=== PATIENT | female | born 1970 | race African-American/Black ===

== ENCOUNTER 2017-01-11 21:23 | Observation (INO) | payer MEDICARE, OTHER ==
[~2017-01-11] VITALS: Ht 165.1 cm; Wt 123.1 kg
[~2017-01-11 21:23] MED LIST: AMBI10TA PO; BENL120I INJ; CYMB60CA PO; DIAZ5 PO; FENT50DI T-DERMAL; GABA800T PO; METH2.5T PO; OMEP20TA PO; OXYC30TA PO; PRED5TAB PO; PROM25TA5 PO; VENTAER INH; ZANA4CAP PO; ZOFR4TAB PO; [UNRECOGNIZED DRUG - CODE] PO
[2017-01-11 21:43] VITALS: BP 129/77; PULSE 76; RESP 20; TEMP 98.9; O2SAT 98
[2017-01-11] MEDS ORDERED: CARD360C PO (22:27)
[2017-01-11] MEDS ORDERED: FOLI5CAP PO (22:27)
--- NOTE | 2017-01-11 22:41 | PD ---
HPI Chief Complaint: Chest Pain Time Seen by Provider: 22:06 Travel History International Travel<30 days: No Contact w/Intl Traveler<30days: No Traveled to known affect area: No History of Present Illness HPI 46-year-old female with history of lupus, asthma, hypertension, fibromyalgia, here for evaluation of chest pain. The patient reports having substernal chest pain that radiates to her upper back. Pain described as a tightness/shortness, constant, 9 out of 10, worse with movement and palpation and deep inspiration. She denies history of cardiac disease. There is family history of heart disease. No history of DVT or PE. She has been having a cough which has been blood tinged. She reports low-grade fevers of 99/100F. PFSH Past Medical History Hx Anticoagulant Therapy: No Arthritis: Yes Asthma: Yes Blood Disorders: No Heart Rhythm Problems: No Cancer: No Cardiovascular Problems: Yes (IRREGULAR HEART BEAT - FEELS HEART IS RACING - UNKNOWN SPECIFICS) High Cholesterol: No Chemotherapy: No Chest Pain: No Congestive Heart Failure: No COPD: No Cerebrovascular Accident: No Diabetes: No Diminished Hearing: No Endocrine: No Gastrointestinal Disorders: Yes (ACID REFLUX; GALL BLADDER DISEASE ) GERD: Yes Glaucoma: No Genitourinary: Yes (HX KIDNEY INFECTIONS) Headaches: Yes Hepatitis: No Hiatal Hernia: No Hypertension: Yes Immune Disorder: Yes (LUPUS; FIBROMYALGHIA) Medical other: Yes Musculoskeletal: Yes (ARTHRITIS; JOINT PAIN; FIBROMYALGHIA) Neurologic: Yes (DEGENERATIVE DISK DISEASE; MIGRAINE HEADACHES) Psychiatric: Yes (ANXIETY & DEPRESSION) Reproductive: No Respiratory: Yes (ASTHMA) Immunizations Current: Yes Migraines: No Myocardial Infarction: No Radiation Therapy: No Seizures: No Sickle Cell Disease: No Sleep Apnea: No Thyroid Disease: No Ulcer: No Tetanus Vaccination: < 5 Years Influenza Vaccination: Yes ?: Not Past Surgical History Abdominal Surgery: No AICD: No Appendectomy: No Arteriovenous Shunt: No Body Medical Devices: TOTAL RIGHT KNEE; L5 & S1 HARDWARE; CERVICAL HARDWARE - SMART PORT Cardiac Surgery: No Cholecystectomy: Yes Ear Surgery: No Endocrine Surgery: No Eye Surgery: No Genitourinary Surgery: Yes (bladder tuck 2002) Gynecologic Surgery: Yes (partial hysterectomy 2002; ROMAN TUBAL LIGATION ) Hysterectomy: Yes Insulin Pump: No Joint Replacement: Yes (TOTAL RIGHT KNEE; l5 & S1 HARDWARE; CERVICAL HARDWARE) Neurologic Surgery: Yes (LUMBAR SPINAL FUSION 1998, CERVICAL FUSION C3-C4 2013) Oral Surgery: No Pacemaker: No Thoracic Surgery: No Other Surgery: Yes (IMPLANTATION OF SMART PORT) Social History Alcohol Use: No Tobacco Use: No Substance Use: No Allergies-Medications (Allergen,Severity, Reaction): Coded Allergies: Pyridium (Verified Allergy, Severe, CAN'T BREATHE, 01/11/17) HIVES, ITCHING, SWEATS Uncoded Allergies: BRAZIL NUTS (Allergy, Severe, THROAT CLOSES; THROAT SWELLING, 12/07/15) IV CONTRAST DYE (Allergy, Unknown, Hives, 12/07/15) PT STATES SHE CAN PRE MEDITATED WITH BENADRYL WITH NO REACTION Reported Meds & Prescriptions Reported Meds & Active Scripts Active Reported Folic Acid 5 Mg Cap 5 Mg PO DAILY Cardizem CD 24 HR (Diltiazem CD 24 HR) 360 Mg Caper 360 Mg PO DAILY Prednisone 5 Mg Tab 10 Mg PO DAILY Fentanyl Patch 72 HR (Fentanyl) 50 Mcg/Hr Patch 50 Mcg T-DERMAL Q72H Remove old patch when new one placed. Benlysta Inj (Belimumab) 120 Mg Inj 120 Mg INJ MONTHLY Methotrexate 2.5 Mg Tab 20 Mg PO Q7D Ventolin Hfa 18 GM Inh (Albuterol Sulfate) 90 Mcg/Act Aer 2 Puff INH Q4-6H PRN Cymbalta DR (Duloxetine HCl) 60 Mg Capdr 60 Mg PO DAILY Omeprazole 20 Mg Tab 20 Mg PO DAILY Zofran (Ondansetron HCl) 4 Mg Tab 4 Mg PO Q6HR PRN Gabapentin 800 Mg Tab 800 Mg PO TID Oxycodone (Oxycodone HCl) 30 Mg Tab 30 Mg PO Q6HR PRN Zanaflex (Tizanidine HCl) 4 Mg Cap 2 Mg PO TID Ambien (Zolpidem Tartrate) 10 Mg Tab 10 Mg PO HS PRN Review of Systems Except as stated in HPI: all other systems reviewed are Neg Physical Exam Narrative GENERAL: Well-developed, well-nourished, overweight, comfortable, no acute distress. SKIN: Warm and dry. No rash. HEAD: Atraumatic. Normocephalic. EYES: Pupils equal and round. No scleral icterus. No injection or drainage. ENT: Mucous membranes pink and moist. NECK: Trachea midline. No JVD. CARDIOVASCULAR: Regular rate and rhythm. Distal pulses brisk and equal bilaterally. RESPIRATORY: No accessory muscle use. Clear to auscultation. Breath sounds equal bilaterally. GASTROINTESTINAL: Abdomen soft, non-tender, nondistended. MUSCULOSKELETAL: No obvious deformities. No clubbing. No cyanosis. No edema. NEUROLOGICAL: Awake and alert. No obvious cranial nerve deficits. Motor grossly within normal limits. Normal speech. PSYCHIATRIC: Appropriate mood and affect; insight and judgment normal. Data Data Last Documented VS Vital Signs Date Time Temp Pulse Resp B/P Pulse Ox O2 Delivery O2 Flow Rate FiO2 01/11/17 21:43 98.9 76 20 129/77 98 Orders Electrocardiogram (01/11/17 21:55) Complete Blood Count With Diff (01/11/17 22:37) Comprehensive Metabolic Panel (01/11/17 22:37) B-Type Natriuretic Peptide (01/11/17 22:37) Act Partial Throm Time (Ptt) (01/11/17 22:37) Prothrombin Time / Inr (Pt) (01/11/17 22:37) Ckmb (Isoenzyme) Profile (01/11/17 22:37) Troponin I (01/11/17 22:37) Influenzae A/B Antigen (01/11/17 22:37) Iv Access Insert/Monitor (01/11/17 22:37) Ecg Monitoring (01/11/17 22:37) Oximetry (01/11/17 22:37) Oxygen Administration (01/11/17 22:37) Chest, Single Ap (01/11/17 22:37) Sodium Chloride 0.9% Flush (Ns Flush) (01/11/17 22:45) Beta Hcg (Quant/Titer) (01/11/17 22:37) Aspirin Chew (Aspirin Chew) (01/11/17 22:45) Albuterol-Ipratropium Neb (Duoneb Neb) (01/11/17 22:45) D-Dimer (01/11/17 22:37) Nitroglycerin Sl (Nitrostat Sl) (01/11/17 23:45) Morphine Inj (Morphine Inj) (01/12/17 00:00) Ondansetron Inj (Zofran Inj) (01/12/17 00:00) Ventilation & Perfusion Scan (01/11/17 ) Labs Laboratory Tests Test 01/11/17 23:00 White Blood Count 9.8 TH/MM3 Red Blood Count 4.35 MIL/MM3 Hemoglobin 13.0 GM/DL Hematocrit 38.6 % Mean Corpuscular Volume 88.7 FL Mean Corpuscular Hemoglobin 29.9 PG Mean Corpuscular Hemoglobin 33.7 % Concent Red Cell Distribution Width 13.4 % Platelet Count 243 TH/MM3 Mean Platelet Volume 7.6 FL Neutrophils (%) (Auto) 58.7 % Lymphocytes (%) (Auto) 27.2 % Monocytes (%) (Auto) 8.2 % Eosinophils (%) (Auto) 2.2 % Basophils (%) (Auto) 3.7 % Neutrophils # (Auto) 5.7 TH/MM3 Lymphocytes # (Auto) 2.7 TH/MM3 Monocytes # (Auto) 0.8 TH/MM3 Eosinophils # (Auto) 0.2 TH/MM3 Basophils # (Auto) 0.4 TH/MM3 CBC Comment DIFF FINAL Differential Comment Prothrombin Time 10.5 SEC Prothromb Time International 1.0 RATIO Ratio Activated Partial 37.1 SEC Thromboplast Time D-Dimer Quantitative (PE/DVT) 0.88 MG/L FEU Sodium Level 141 MEQ/L Potassium Level 3.6 MEQ/L Chloride Level 105 MEQ/L Carbon Dioxide Level 27.9 MEQ/L Anion Gap 8 MEQ/L Blood Urea Nitrogen 11 MG/DL Creatinine 0.64 MG/DL Estimat Glomerular Filtration 120 ML/MIN Rate Random Glucose 108 MG/DL Calcium Level 8.1 MG/DL Total Bilirubin 0.3 MG/DL Aspartate Amino Transf 8 U/L (AST/SGOT) Alanine Aminotransferase 12 U/L (ALT/SGPT) Alkaline Phosphatase 86 U/L Total Creatine Kinase 64 U/L Troponin I LESS THAN 0.02 NG/ML B-Type Natriuretic Peptide 11 PG/ML Total Protein 7.2 GM/DL Albumin 3.3 GM/DL Human Chorionic Gonadotropin, LESS THAN 1 Quant MIU/ML MDM Medical Decision Making Medical Screen Exam Complete: Yes Emergency Medical Condition: Yes Medical Record Reviewed: Yes Interpretation(s) EKG: Sinus, rate 76, normal axis, normal intervals, no acute ischemic abnormality. Differential Diagnosis ACS, pneumothorax, pericarditis, PE, pneumonia, bronchitis, musculoskeletal pain , dissection Narrative Course Vital signs show heart rate 76, blood pressure 129/77, pulse ox 98% on room air , oral temp of 98.9F. CBC is unremarkable. CMP is unremarkable. Cardiac enzymes are negative. HCG is negative. BNP is 11. Influenza is negative. D-dimer 0.88. Chest x-ray shows no acute cardio pulmonary disease. Patient states that her pain is 9.5 out of 10. The patient does not appear to be in any acute distress and is resting comfortably on her cell phone. I wrote for nitroglycerin, however when the patient saw that she was then again nitroglycerin for her pain, she refused it stating that it was going to give her a headache. She states that her pain medications at home are not working for her pain and she is on oxycodone as well as a fentanyl patch. She is requesting something stronger for pain. I will give her a dose of morphine. Given her slight elevated d-dimer, VQ scan will be ordered as she has an IV contrast dye allergy. At approximately midnight at the end of my shift the patient was signed out to Dr. Lamb who will follow up with VQ scan and disposition the patient. Tom Monreal MD Jan 11, 2017 22:41
[2017-01-11] MEDS ORDERED: ASPIRIN 81 MG CHEW TAB PO ONE (22:45)
[2017-01-11] MEDS ORDERED: SODIUM CHLORIDE 0.9% FLUSH 5 ML FLUSH IVF PRN (22:45)
[2017-01-11] MEDS: RESP: ALBUTEROL 2.5 MG/IPRATROPIUM 0.5 MG NEB (SCH) INH ×3 (22:48→23:13)
--- NOTE | 2017-01-11 22:57 | RADHPO ---
EXAM DATE/TIME: 01/11/2017 22:43 [facility] COMPARISON: No previous studies available for comparison. INDICATIONS : Cough, complains of chest and rib pain. MEDICAL HISTORY : None. SURGICAL HISTORY : None. ENCOUNTER: Initial ACUITY: 2 days PAIN SCORE: 10/10 LOCATION: Bilateral chest FINDINGS: The cardiac silhouette is normal in transverse diameter. The lungs are free of acute parenchymal opac ity. No effusions are identified. [id number] is in place via right subclavian approach with its ti p in the superior vena cava. CONCLUSION: 1. No acute cardiopulmonary disease. Darell Martin MD on January 11, 2017 at 22:55 Board Certified Radiologist. This report was verified electronically.
[2017-01-11 23:05] VITALS: BP 177/92; PULSE 90; RESP 20; O2SAT 99
[2017-01-11 23:18] LABS: AUTOMATED NEUTROPHIL # 5.7 TH/MM3 (1.8-7.7); BASOPHIL # 0.4 TH/MM3 (0-0.2); BASOPHIL % 3.7 % (0.0-2.0); EOSINOPHIL # 0.2 TH/MM3 (0-0.4); EOSINOPHIL % 2.2 % (0.0-4.0); HEMATOCRIT 38.6 % (35.0-46.0); HEMO FLAGS DIFF FINAL; LYMPH % 27.2 % (9.0-44.0); LYMPHOCYTE # 2.7 TH/MM3 (1.0-4.8); MEAN CELL VOLUME 88.7 FL (80.0-100.0); MEAN CORPUSCULAR HEMOGLOBIN 29.9 PG (27.0-34.0); MEAN CORPUSCULAR HGB CONC 33.7 % (32.0-36.0); MONO % 8.2 % (0.0-8.0); NEUT % 58.7 % (16.0-70.0); PLATELET COUNT 243 TH/MM3 (150-450); RED BLOOD COUNT 4.35 MIL/MM3 (4.00-5.30); RED CELL DISTRIBUTION WIDTH 13.4 % (11.6-17.2); WHITE BLOOD COUNT 9.8 TH/MM3 (4.0-11.0)
[2017-01-11 23:26] LABS: CHLORIDE 105 MEQ/L (98-107); POTASSIUM 3.6 MEQ/L (3.5-5.1); SODIUM (NA) 141 MEQ/L (136-145)
[2017-01-11 23:29] LABS: ANION GAP 8 MEQ/L (5-15); BICARBONATE 27.9 MEQ/L (21.0-32.0)
[2017-01-11 23:30] LABS: BLOOD UREA NITROGEN 11 MG/DL (7-18)
[2017-01-11 23:32] LABS: ALT (GPT) 12 U/L (10-53); AST (GOT) 8 U/L (15-37)
[2017-01-11 23:33] LABS: APTT (PATIENT) 37.1 SEC (24.3-30.1); GLOMERULAR FILTRATION RATE 120 ML/MIN (>89); PROTHROMBIN TIME - PATIENT 10.5 SEC (9.8-11.6)
[2017-01-11 23:34] LABS: TOTAL BILIRUBIN ADULT 0.3 MG/DL (0.2-1.0)
[2017-01-11 23:35] LABS: ALKALINE PHOSPHATASE 86 U/L (45-117)
[2017-01-11 23:37] LABS: BETA HCG QUANT LESS THAN 1 MIU/ML (0-5)
[2017-01-11 23:42] LABS: CREATINE KINASE 64 U/L (26-192)
[2017-01-11] MEDS: NITROGLYCERIN 0.4 MG SL 25 TABS/BTL SL SCH ×3 (23:45→23:55)
[2017-01-12] VITALS (9 sets, daily range): BP systolic 119–174; BP diastolic 64–110; PULSE 66–90; RESP 16–22; TEMP 95.8–97.9; O2SAT 96–99
[2017-01-12] MEDS ORDERED: MORPHINE SULFATE 8 MG/ML INJ IV PUSH ONE
[2017-01-12] MEDS ORDERED: ONDANSETRON HCL 4 MG/2 ML VIAL IV PUSH ONE
--- NOTE | 2017-01-12 00:16 | PD ---
Physical Exam Date Seen by Provider: Jan 12, 2017 Time Seen by Provider: 00:16 Narrative Accepted in transfer of care from Dr Monreal Data Data Last Documented VS Vital Signs Date Time Temp Pulse Resp B/P Pulse Ox O2 Delivery O2 Flow Rate FiO2 01/12/17 00:00 90 20 174/110 99 01/11/17 23:30 Room Air 01/11/17 21:43 98.9 Orders Electrocardiogram (01/11/17 21:55) Complete Blood Count With Diff (01/11/17 22:37) Comprehensive Metabolic Panel (01/11/17 22:37) B-Type Natriuretic Peptide (01/11/17 22:37) Act Partial Throm Time (Ptt) (01/11/17 22:37) Prothrombin Time / Inr (Pt) (01/11/17 22:37) Ckmb (Isoenzyme) Profile (01/11/17 22:37) Troponin I (01/11/17 22:37) Influenzae A/B Antigen (01/11/17 22:37) Iv Access Insert/Monitor (01/11/17 22:37) Ecg Monitoring (01/11/17 22:37) Oximetry (01/11/17 22:37) Oxygen Administration (01/11/17 22:37) Chest, Single Ap (01/11/17 22:37) Sodium Chloride 0.9% Flush (Ns Flush) (01/11/17 22:45) Beta Hcg (Quant/Titer) (01/11/17 22:37) Aspirin Chew (Aspirin Chew) (01/11/17 22:45) Albuterol-Ipratropium Neb (Duoneb Neb) (01/11/17 22:45) D-Dimer (01/11/17 22:37) Nitroglycerin Sl (Nitrostat Sl) (01/11/17 23:45) Morphine Inj (Morphine Inj) (01/12/17 00:00) Ondansetron Inj (Zofran Inj) (01/12/17 00:00) Ventilation & Perfusion Scan (01/11/17 ) Troponin I (01/12/17 03:34) Ckmb (Isoenzyme) Profile (01/12/17 03:34) Admit Order (Ed Use Only) (01/12/17 ) ^ Saline Lock (01/12/17 04:05) Resp Oxygen Kb C Titrat 1-4 L (01/12/17 ) ^ Notify Dr: Other (01/12/17 04:05) Sodium Chloride 0.9% Flush (Ns Flush) (01/12/17 09:00) Sodium Chloride 0.9% Flush (Ns Flush) (01/12/17 04:15) Activity Bed Rest With Brp (01/12/17 04:05) Vital Signs (Adult) Q4H (01/12/17 04:05) Cardiac Rhythm .As Directed (01/12/17 04:05) ^ Notify Dr: Other .PRN (01/12/17 04:05) ^ Notify Dr. Parameters (01/12/17 04:05) Resp Oxygen Nasal Cannula (01/12/17 ) Ckmb (Isoenzyme) Profile (01/12/17 06:30) Ckmb (Isoenzyme) Profile (01/12/17 09:30) Troponin I (01/12/17 06:30) Troponin I (01/12/17 09:30) Electrocardiogram (01/12/17 06:30) Electrocardiogram (01/12/17 09:30) ^ Obtain (01/12/17 04:05) Sodium Chloride 0.9% Flush (Ns Flush) (01/12/17 04:15) Sodium Chloride 0.9% Flush (Ns Flush) (01/12/17 09:00) Starch Mangle Tender / Telemetry ROSE.Q8H (01/12/17 04:05) Labs Laboratory Tests Test 01/11/17 01/12/17 23:00 03:40 White Blood Count 9.8 TH/MM3 Red Blood Count 4.35 MIL/MM3 Hemoglobin 13.0 GM/DL Hematocrit 38.6 % Mean Corpuscular Volume 88.7 FL Mean Corpuscular Hemoglobin 29.9 PG Mean Corpuscular Hemoglobin 33.7 % Concent Red Cell Distribution Width 13.4 % Platelet Count 243 TH/MM3 Mean Platelet Volume 7.6 FL Neutrophils (%) (Auto) 58.7 % Lymphocytes (%) (Auto) 27.2 % Monocytes (%) (Auto) 8.2 % Eosinophils (%) (Auto) 2.2 % Basophils (%) (Auto) 3.7 % Neutrophils # (Auto) 5.7 TH/MM3 Lymphocytes # (Auto) 2.7 TH/MM3 Monocytes # (Auto) 0.8 TH/MM3 Eosinophils # (Auto) 0.2 TH/MM3 Basophils # (Auto) 0.4 TH/MM3 CBC Comment DIFF FINAL Differential Comment Prothrombin Time 10.5 SEC Prothromb Time International 1.0 RATIO Ratio Activated Partial 37.1 SEC Thromboplast Time D-Dimer Quantitative (PE/DVT) 0.88 MG/L FEU Sodium Level 141 MEQ/L Potassium Level 3.6 MEQ/L Chloride Level 105 MEQ/L Carbon Dioxide Level 27.9 MEQ/L Anion Gap 8 MEQ/L Blood Urea Nitrogen 11 MG/DL Creatinine 0.64 MG/DL Estimat Glomerular Filtration 120 ML/MIN Rate Random Glucose 108 MG/DL Calcium Level 8.1 MG/DL Total Bilirubin 0.3 MG/DL Aspartate Amino Transf 8 U/L (AST/SGOT) Alanine Aminotransferase 12 U/L (ALT/SGPT) Alkaline Phosphatase 86 U/L Total Creatine Kinase 64 U/L 52 U/L Troponin I LESS THAN 0.02 LESS THAN 0.02 NG/ML NG/ML B-Type Natriuretic Peptide 11 PG/ML Total Protein 7.2 GM/DL Albumin 3.3 GM/DL Human Chorionic Gonadotropin, LESS THAN 1 Quant MIU/ML MDM Medical Record Reviewed: Yes Supervised Visit with ABDIRAHMAN: No Interpretation(s) Last Impressions Chest X-Ray 01/11/172236 Signed Impressions: Service Date/Time: December 22:43 - CONCLUSION: 1. No acute cardiopulmonary disease. Darell Martin MD Lung Scan-VQ Nuclear Medicine 01/11/17 0000 Signed Impressions: Service Date/Time: Thursday, January 12, 2017 02:44 - CONCLUSION: 1. Low probability of pulmonary embolism Darell Martin MD Differential Diagnosis Please refer to Dr. Monreal's dictation Narrative Course Accepted in transfer of care from Dr. Monreal for follow-up of pending VQ scan and patient disposition; plan to admit to chest pain center per protocol Patient informed of VQ scan results returned low probability for PE Patient aware plan for observation admission for serial cardiac enzymes and EKGs to evaluate further for chest pain we'll admit to chest pain center per protocol at [facility] case discussed with on-call medicine Physician Communication Physician Communication case discussed with DR Nguyen for [employer] HHPO obs admission Diagnosis Primary Impression: Chest pain Admitting Information Admitting Physician Requests: Observation Heather Lamb MD Jan 12, 2017 00:16
--- NOTE | 2017-01-12 03:17 | RADHPO ---
EXAM DATE/TIME: 01/12/2017 02:44 [facility] COMPARISON: No previous studies available for comparison. INDICATIONS : Substernal chest pain radiating to upper back with a cough. DOSE: 8.7 mCi Tc99m MAA IV 0.8 mCi Tc99m DTPA aerosol MEDICAL HISTORY : Lupus. Hypertension. Gastroesophageal reflux disease. Asthma. SURGICAL HISTORY : Cholecystectomy. Hysterectomy. Total knee replacement, right. ENCOUNTER: Initial ACUITY: 1 day PAIN SCALE: 9/10 LOCATION: chest TECHNIQUE: Following five minutes of tidal breathing of DTPA aerosol, planar images of the lungs were performed in eight projections. The patient was then injected with MAA, and eight-view perfusion scan was perf ormed. FINDINGS: There is a homogeneous pattern of aerosol delivery to the periphery of both lungs. No focal ventilat ory defects are seen. The perfusion lung scan demonstrates a homogenous pattern of uptake in both lungs. No segmental or s ubsegmental defects are seen. CONCLUSION: 1. Low probability of pulmonary embolism Darell Martin MD on January 12, 2017 at 3:15 Board Certified Radiologist. This report was verified electronically.
[2017-01-12 04:03] LABS: CREATINE KINASE 52 U/L (26-192)
[2017-01-12] MEDS ORDERED: SODIUM CHLORIDE 0.9% FLUSH 5 ML FLUSH IVF PRN ×3 (04:15→11:00)
[2017-01-12] MEDS ORDERED: fentaNYL 50 MCG/HR PATCH T-DERMAL SCH (06:00)
[2017-01-12] MEDS: MORPHINE SULFATE 4 MG/ML INJ IV PUSH PRN ×2 (06:16→09:15)
[2017-01-12 06:56] LABS: CREATINE KINASE 43 U/L (26-192)
[2017-01-12] MEDS ORDERED: FOLIC ACID 1 MG TAB PO SCH (09:00)
[2017-01-12] MEDS ORDERED: DULoxetine HCl DR 60 MG CAP PO SCH (09:00)
[2017-01-12] MEDS ORDERED: PANTOPRAZOLE SOD 20 MG DELAYED RELEASE TAB PO SCH (09:00)
[2017-01-12] MEDS ORDERED: DILTIAZEM-CD 180 MG CAP ER PO SCH (09:00)
[2017-01-12] MEDS ORDERED: predniSONE 5 MG TAB PO SCH (09:00)
[2017-01-12] MEDS ORDERED: GABAPENTIN 400 MG CAP PO SCH (09:00)
[2017-01-12] MEDS ORDERED: SODIUM CHLORIDE 0.9% FLUSH 5 ML FLUSH IVF SCH ×2 (09:00)
[2017-01-12] MEDS ORDERED: LEVO750T33 PO (09:03)
--- NOTE | 2017-01-12 09:04 | HHI.DCPOC ---
Discharge Care Plan Diagnosis: (1) Chest pain (2) Costochondritis Goals to Promote Your Health * To prevent worsening of your condition and complications * To maintain your health at the optimal level Directions to Meet Your Goals Take your medications as prescribed Follow your dietary instruction Follow activity as directed Keep your appointments as scheduled Take your immunizations and boosters as scheduled If your symptoms worsen call your PCP, if no PCP go to Urgent Care Center or Emergency Room Smoking is Dangerous to Your Health. Avoid second hand smoke Call the 24-hour hour crisis hotline for domestic abuse at Yao Geiger Jan 12, 2017 09:04
--- NOTE | 2017-01-12 09:20 | HHI.HP ---
[facility] Non-Staff Admission Diagnosis chest pain Diagnoses: (1) Chest pain Diagnosis: Principal (2) Costochondritis Diagnosis: Principal (3) Cough Diagnosis: Principal Chief Complaint: Chest pain Travel History International Travel<30 Days: No Contact w/Intl Traveler <30 Da: No Traveled to Known Affected Are: No History of Present Illness 46-year-old female with known history of hypertension, fibromyalgia, lupus, anxiety and depression who presented to hospital because of chest pain. Patient states that her symptoms started 6 days ago with cough. She states that she had a cold that went away, then it came back, then it went away. She has used Delsym with improvement of her symptoms. However the day after she started having a cough she developed pain in her chest and in her back worse whenever she coughs. The pain is persistent at a scale 3/10 on a pain scale. It is not worsened with activity and not relieved at rest. She denied any nausea, vomiting, diaphoresis. She states that whenever she takes a deep breath it does hurt in her middle part of her chest. She states that the pain is palpable in the middle part of her chest. And has progressively gotten worse with her coughing. She had an episode of cough yesterday with associated shortness of breath. She states that she coughed up some phlegm that it appeared to have some blood streaks in it. Because of that she came to the emergency department for evaluation. Patient had workup done emergency department. Laboratory studies were unremarkable. Chest x-ray was unremarkable. VQ scan indicating low probability for PE. Patient still having pain in her chest worse with deep inspiration and reproducible on palpation. It was recommended by the ER physician that the patient be observed in the chest pain center. Review of Systems Constitutional: DENIES: Diaphoretic episodes, Fatigue, Fever, Weight gain, Weight loss, Chills, Dizziness, Change in appetite, Night Sweats Eyes: DENIES: Blurred vision, Diplopia, Eye inflammation, Eye pain, Vision loss , Double Vision Ears, nose, mouth, throat: DENIES: Vertigo, Nasal discharge, Throat pain, Ear Pain, Running Nose, Sinus Pain Respiratory: COMPLAINS OF: Cough, Hemoptysis, DENIES: Apneas, Snoring, Wheezing, Sputum production, Shortness of breath Cardiovascular: COMPLAINS OF: Chest pain, DENIES: Palpitations, Syncope, Dyspnea on Exertion, Lower Extremity Edema, Orthopnea Gastrointestinal: DENIES: Abdominal pain, Black stools, Bloody stools, Constipation, Diarrhea, Nausea, Vomiting, Difficulty Swallowing, Anorexia Neurologic: DENIES: Abnormal gait, Headache, Localized weakness, Paresthesias, Seizures, Speech Problems, Tremor, Poor Balance Psychiatric: COMPLAINS OF: Anxiety, Depression, DENIES: Confusion, Mood changes Past Family Social History Past Medical History Hypertension Fibromyalgia Lupus Chronic pain Anxiety/depression Gastroesophageal reflux Past Surgical History Mediport placement 2 Right rotator cuff surgery Right knee surgery Right total knee replacement Fusion of cervical spine C3-C4 Fusion of lumbar spine L5-S1 Tubal ligation Partial hysterectomy Left hand surgery Cholecystectomy Reported Medications Reported Meds & Active Scripts Active Levofloxacin 750 Mg Tab 750 Mg PO DAILY 7 Days Reported Folic Acid 5 Mg Cap 5 Mg PO DAILY Cardizem CD 24 HR (Diltiazem CD 24 HR) 360 Mg Caper 360 Mg PO DAILY Prednisone 5 Mg Tab 10 Mg PO DAILY Fentanyl Patch 72 HR (Fentanyl) 50 Mcg/Hr Patch 50 Mcg T-DERMAL Q72H Remove old patch when new one placed. Benlysta Inj (Belimumab) 120 Mg Inj 120 Mg INJ MONTHLY Methotrexate 2.5 Mg Tab 20 Mg PO Q7D Ventolin Hfa 18 GM Inh (Albuterol Sulfate) 90 Mcg/Act Aer 2 Puff INH Q4-6H PRN Cymbalta DR (Duloxetine HCl) 60 Mg Capdr 60 Mg PO DAILY Omeprazole 20 Mg Tab 20 Mg PO DAILY Zofran (Ondansetron HCl) 4 Mg Tab 4 Mg PO Q6HR PRN Gabapentin 800 Mg Tab 800 Mg PO TID Oxycodone (Oxycodone HCl) 30 Mg Tab 30 Mg PO Q6HR PRN Zanaflex (Tizanidine HCl) 4 Mg Cap 2 Mg PO TID Ambien (Zolpidem Tartrate) 10 Mg Tab 10 Mg PO HS PRN Allergies: Coded Allergies: Pyridium (Verified Allergy, Severe, CAN'T BREATHE, 01/11/17) HIVES, ITCHING, SWEATS Uncoded Allergies: BRAZIL NUTS (Allergy, Severe, THROAT CLOSES; THROAT SWELLING, 12/07/15) IV CONTRAST DYE (Allergy, Unknown, Hives, 12/07/15) PT STATES SHE CAN PRE MEDITATED WITH BENADRYL WITH NO REACTION Family History Reviewed is significant for heart disease, myocardial infarction, sickle cell anemia, Social History Patient denies any tobacco, alcohol or illicit drugs Physical Exam Vital Signs Vital Signs Date Time Temp Pulse Resp B/P Pulse Ox O2 Delivery O2 Flow Rate FiO2 01/12/17 07:44 97.9 66 16 119/64 98 Room Air 01/12/17 03:12 70 20 169/84 99 01/12/17 02:00 78 20 155/73 99 01/12/17 01:00 82 20 153/69 98 01/12/17 00:00 90 20 174/110 99 01/12/17 00:00 99 21 01/11/17 23:30 20 97 Room Air 01/11/17 23:05 90 20 177/92 99 01/11/17 23:05 99 Room Air 01/11/17 21:43 98.9 76 20 129/77 98 Physical Exam GENERAL: Well-developed, well-nourished, in no acute distress. alert and orientated HEENT: Head is normocephalic without any lesions or masses noted. Facial features are symmetric. Eyes: Pupils equal round reactive to light. Extraocular muscles are intact. Conjunctivae were clear. Oropharyngeal: Pharynx without any erythema edema. Tongue is midline without deviation. Buccal mucosa is moist without any masses or lesions NECK: Supple without any masses. Trachea midline no deviation. No JVD, no bruits are appreciated CARDIAC: Regular rhythm, regular rate. S1/S2 are heard. No murmurs gallops or rubs. Reproducible palpable tenderness noted in the midsternal region LUNGS: Clear to auscultation bilaterally. No wheeze, rhonchi or rales. No use of accessory muscles on inspiration or expiration. ABDOMEN: Soft, nontender. Nondistended. Bowel sounds heard in all 4 quadrants. No organomegaly or masses. Negative rebound, negative guarding EXTREMITIES: No edema, pulses are equal bilaterally. No cyanosis or clubbing NEUROLOGY: Mood and affect appear appropriate. Cranial nerves II through XII grossly intact. Muscle strength 5/5 in upper and lower extremities bilaterally. Deep tendon reflexes are 2+ in upper and lower extremities bilaterally. Laboratory Laboratory Tests Test 01/11/17 01/12/17 01/12/17 23:00 03:40 06:25 White Blood Count 9.8 Red Blood Count 4.35 Hemoglobin 13.0 Hematocrit 38.6 Mean Corpuscular Volume 88.7 Mean Corpuscular Hemoglobin 29.9 Mean Corpuscular Hemoglobin 33.7 Concent Red Cell Distribution Width 13.4 Platelet Count 243 Mean Platelet Volume 7.6 Neutrophils (%) (Auto) 58.7 Lymphocytes (%) (Auto) 27.2 Monocytes (%) (Auto) 8.2 Eosinophils (%) (Auto) 2.2 Basophils (%) (Auto) 3.7 Neutrophils # (Auto) 5.7 Lymphocytes # (Auto) 2.7 Monocytes # (Auto) 0.8 Eosinophils # (Auto) 0.2 Basophils # (Auto) 0.4 CBC Comment DIFF FINAL Differential Comment Prothrombin Time 10.5 Prothromb Time International 1.0 Ratio Activated Partial 37.1 Thromboplast Time D-Dimer Quantitative (PE/DVT) 0.88 Sodium Level 141 Potassium Level 3.6 Chloride Level 105 Carbon Dioxide Level 27.9 Anion Gap 8 Blood Urea Nitrogen 11 Creatinine 0.64 Estimat Glomerular Filtration 120 Rate Random Glucose 108 Calcium Level 8.1 Total Bilirubin 0.3 Aspartate Amino Transf 8 (AST/SGOT) Alanine Aminotransferase 12 (ALT/SGPT) Alkaline Phosphatase 86 Total Creatine Kinase 64 52 43 Troponin I LESS THAN 0.02 LESS THAN 0.02 LESS THAN 0.02 B-Type Natriuretic Peptide 11 Total Protein 7.2 Albumin 3.3 Human Chorionic Gonadotropin, LESS THAN 1 Quant Date/Time Procedure Status Source Growth 01/11/17 23:40 Influenza Types A,B Antigen (ZAKIA) - Final Complete Nasal Washing NEGATIVE FOR FLU A AND B ANTIGEN.... Result Diagram: 01/11/17229901/11/172299 Imaging Last Impressions Chest X-Ray 01/11/177 Signed Impressions: Service Date/Time: December 22:43 - CONCLUSION: 1. No acute cardiopulmonary disease. Darell Martin MD Lung Scan- Nuclear Medicine 01/11/17 0000 Signed Impressions: Service Date/Time: Thursday, January 12, 2017 02:44 - CONCLUSION: 1. Low probability of pulmonary embolism Darell Martin MD Assessment and Plan Assessment and Plan Chest pain: Patient with minimal risk factors to include hypertension, family history of heart disease. Patient presented with constant reproducible chest pain mid sternum and mid back worse with movement and deep inspiration, starting after coughing. Chest x-ray did not indicate any acute abnormality. VQ scan low probability for PE. Given that the pain is reproducible on palpation and was initiated by worsening cough, likely muscle skeletal in nature , costochondritis of the sternum. Patient indicates that she has had costochondritis before. Patient has been ruled out for any acute coronary event with serial cardiac enzymes which remained negative. Serial EKGs were performed and reviewed by myself which indicated normal sinus rhythm without any changes. Unable to perform stress test at this time because VQ scan was performed. Discussed with the patient extensively on findings thus far and informed her that her low likelihood that her pain is cardiac related. Notified her that the soonest we can do a stress test would be 72 hours. Patient does not want to remain in the hospital until then for testing. Notified her that we can treat for costochondritis, and underlying bronchitis. Patient should continue with her pain medications, apply ice to the area continue symptomatically treatment of her cough with Delsym. Consulted case management to arrange early follow-up with her primary medical doctor on Sunday. Patient is agreeable with plan at this time. Hypertension: Continued home medications. Lupus, fibromyalgia: Patient's home medications have been continued DVT prevention: Low risk, early ambulation Written by Yao Geiger PA-C, acting as scribe for Dr. Bowles on 01/12/17 at 930. The documentation accurately reflects the work and decisions performed face-to- face by Dr. Bowles on 01/12/17 at 930. Discharge disposition Discharge home in stable condition Activity: Ad yazmin. Diet: Healthy heart diet Medications per medication reconciliation Follow-up primary medical doctor on Sunday. application manager consulted to supply patient with primary medical doctors in the area. Problem Qualifiers (1) Chest pain: Qualified Code: R07.9 - Chest pain, unspecified type Yao Geiger Jan 12, 2017 09:20
[2017-01-12] MEDS ORDERED: ONDANSETRON HCL 4 MG/2 ML VIAL IV PUSH PRN (10:15)
[2017-01-12] MEDS ORDERED: [UNRECOGNIZED DRUG - CODE] PO (10:45)
--- NOTE | 2017-01-12 17:13 | EKG ---
Date Performed: 01/11/2017 Time Performed: 21:55:56 PTAGE: 46 years EKG: Sinus rhythm Compared to prior tracing no significant change Normal ECG PREVIOUS TRACING : 12/08/2015 09.51 DOCTOR: Hector Yeung Interpretating Date/Time 01/12/2017 17:01:58
--- NOTE | 2017-01-12 17:14 | EKG ---
Date Performed: 01/12/2017 Time Performed: 03:27:40 PTAGE: 46 years EKG: Sinus rhythm Inferior T wave changes are nonspecific Compared to prior tracing no significant change Borderline E CG PREVIOUS TRACING : 01/11/2017 21.55 DOCTOR: Hector Yeung Interpretating Date/Time 01/12/2017 17:02:07
--- NOTE | 2017-01-12 17:14 | EKG ---
Date Performed: 01/12/2017 Time Performed: 06:28:12 PTAGE: 46 years EKG: Sinus bradycardia. Compared to prior tracing no significant change Normal ECG except for ra te PREVIOUS TRACING : 01/12/2017 03.27 DOCTOR: Hector Yeung Interpretating Date/Time 01/12/2017 17:02:16
== END 2017-01-12 12:06 | disposition home or self-care (01) ==
LOC: PHED 21:23 → PHEDA 01-12 04:14 → PH3B 01-12 08:39
PROVIDERS: ADMIT Family Medicine; ATTEND Family Medicine
DX: R07.9 Chest pain, unspecified (principal); M94.0 Chondrocostal junction syndrome [Tietze]; R05 Cough; I10 Essential (primary) hypertension; J45.909 Unspecified asthma, uncomplicated; M79.7 Fibromyalgia
CPT/HCPCS: 71010; 78582; 80053; 82550; 83880; 84484; 84702; 85025; 85379; 85610; 85730; 87804; 93005; 94640; 94664; 96374; 96375; 99285; A9540; A9567; G0378; J1642; J2270; J2405; J7512

== ENCOUNTER 2017-03-05 17:05 | Emergency (ER) | payer MEDICARE, OTHER ==
[~2017-03-05] VITALS: Ht 165.1 cm; Wt 118.0 kg
[~2017-03-05 17:05] MED LIST changes: +CARD360C PO; -DIAZ5 PO; +FOLI5CAP PO; -PROM25TA5 PO; +[UNRECOGNIZED DRUG - CODE] PO; -[UNRECOGNIZED DRUG - CODE] PO
[2017-03-05 17:11] VITALS: BP 162/105; PULSE 82; RESP 16; TEMP 98.7; O2SAT 98
--- NOTE | 2017-03-05 17:29 | PD ---
HPI Chief Complaint: Pain: Acute or Chronic Time Seen by Provider: 17:18 Travel History International Travel<30 days: No Contact w/Intl Traveler<30days: No Traveled to known affect area: No History of Present Illness HPI The patient was seen and examined in the presence of the nurse. This patient is concerned about a flare of her chronic lupus. Complains of diffuse pain everywhere. She complains of nausea and diarrhea for 24 hours. Symptoms severity is moderate. No alleviating factors. She denies fever or chest pain. No shortness of breath. PFSH Past Medical History Hx Anticoagulant Therapy: No Arthritis: Yes Asthma: Yes Blood Disorders: No Heart Rhythm Problems: No Cancer: No Cardiovascular Problems: Yes (htn on meds) High Cholesterol: No Chemotherapy: No Chest Pain: No Congestive Heart Failure: No COPD: No Cerebrovascular Accident: No Diabetes: No Diminished Hearing: No Endocrine: No Gastrointestinal Disorders: Yes (ACID REFLUX; GALL BLADDER DISEASE ) GERD: Yes Glaucoma: No Genitourinary: Yes (HX KIDNEY INFECTIONS) Headaches: Yes Hepatitis: No Hiatal Hernia: No Hypertension: Yes Immune Disorder: Yes (LUPUS; FIBROMYALGHIA) Medical other: Yes Musculoskeletal: Yes (ARTHRITIS; JOINT PAIN; FIBROMYALGHIA) Neurologic: Yes (DEGENERATIVE DISK DISEASE; MIGRAINE HEADACHES) Psychiatric: Yes (ANXIETY & DEPRESSION) Reproductive: No Respiratory: Yes (asthma) Immunizations Current: Yes Migraines: No Myocardial Infarction: No Radiation Therapy: No Seizures: No Sickle Cell Disease: No Sleep Apnea: No Thyroid Disease: No Ulcer: No Tetanus Vaccination: < 5 Years Influenza Vaccination: Yes ?: Not Past Surgical History Abdominal Surgery: No AICD: No Appendectomy: No Arteriovenous Shunt: No Body Medical Devices: TOTAL RIGHT KNEE; L5 & S1 HARDWARE; CERVICAL HARDWARE - SMART PORT Cardiac Surgery: No Cholecystectomy: Yes Ear Surgery: No Endocrine Surgery: No Eye Surgery: No Genitourinary Surgery: Yes (bladder tuck 2002) Gynecologic Surgery: Yes (partial hysterectomy 2002; ROMAN TUBAL LIGATION ) Hysterectomy: Yes Insulin Pump: No Joint Replacement: Yes (TOTAL RIGHT KNEE; l5 & S1 HARDWARE; CERVICAL HARDWARE) Neurologic Surgery: Yes (LUMBAR SPINAL FUSION 1998, CERVICAL FUSION C3-C4 2013) Oral Surgery: No Pacemaker: No Thoracic Surgery: No Other Surgery: Yes (IMPLANTATION OF SMART PORT) Social History Alcohol Use: No Tobacco Use: No Substance Use: No Allergies-Medications (Allergen,Severity, Reaction): Coded Allergies: Pyridium (Verified Allergy, Severe, CAN'T BREATHE, 03/05/17) HIVES, ITCHING, SWEATS Uncoded Allergies: BRAZIL NUTS (Allergy, Severe, THROAT CLOSES; THROAT SWELLING, 03/05/17) . IV CONTRAST DYE (Allergy, Unknown, Hives, 03/05/17) .PT STATES SHE CAN PRE MEDITATED WITH BENADRYL WITH NO REACTION Reported Meds & Prescriptions Reported Meds & Active Scripts Active Reported Nitrofurantoin Macrocrystal 100 Mg Cap 100 Mg PO QID Levocetirizine 5 Mg Tab 5 Mg PO DAILY Triamcinolone Topical 0.5 % Oint 1 Applic TOPICAL BID Cardizem CD 24 HR (Diltiazem CD 24 HR) 360 Mg Caper 360 Mg PO DAILY Prednisone 5 Mg Tab 10 Mg PO DAILY Fentanyl Patch 72 HR (Fentanyl) 50 Mcg/Hr Patch 50 Mcg T-DERMAL Q72H Remove old patch when new one placed. Benlysta Inj (Belimumab) 120 Mg Inj 120 Mg INJ MONTHLY Methotrexate 2.5 Mg Tab 20 Mg PO Q7D Ventolin Hfa 18 GM Inh (Albuterol Sulfate) 90 Mcg/Act Aer 2 Puff INH Q4-6H PRN Cymbalta DR (Duloxetine HCl) 60 Mg Capdr 60 Mg PO DAILY Omeprazole 20 Mg Tab 20 Mg PO DAILY Zofran (Ondansetron HCl) 4 Mg Tab 4 Mg PO Q6HR PRN Gabapentin 800 Mg Tab 800 Mg PO TID Oxycodone (Oxycodone HCl) 30 Mg Tab 30 Mg PO Q6HR PRN Zanaflex (Tizanidine HCl) 4 Mg Cap 2 Mg PO TID Review of Systems General / Constitutional: No: Fever Eyes: No: Visual changes HENT: No: Headaches Cardiovascular: No: Chest Pain or Discomfort Respiratory: No: Shortness of Breath Gastrointestinal: Positive: Nausea, Diarrhea, No: Abdominal Pain Genitourinary: No: Dysuria Musculoskeletal: Positive: Myalgias, Arthralgias, Pain Skin: No Rash Neurologic: No: Weakness Psychiatric: No: Depression Endocrine: No: Polydipsia Hematologic/Lymphatic: No: Easy Bruising Physical Exam Narrative GENERAL: Well-nourished, well-developed patient in no apparent distress. SKIN: Focused skin assessment reveals no rash and nodules. Skin is Warm and dry. HEAD: Atraumatic. Normocephalic. EYES: Pupils equal and round. No scleral icterus. No injection or drainage. ENT: No nasal bleeding or discharge. Mucous membranes pink and moist. NECK: Trachea midline. No JVD. CARDIOVASCULAR: Regular rate and rhythm. No murmur appreciated. RESPIRATORY: No accessory muscle use. Clear to auscultation. Breath sounds equal bilaterally. GASTROINTESTINAL: Abdomen soft, non-tender, nondistended. Hepatic and splenic margins not palpable. MUSCULOSKELETAL: No obvious deformities. No clubbing. No cyanosis. No edema. NEUROLOGICAL: Awake and alert. No obvious cranial nerve deficits. Motor grossly within normal limits. Normal speech. PSYCHIATRIC: Appropriate mood and affect; insight and judgment normal. Data Data Last Documented VS Vital Signs Date Time Temp Pulse Resp B/P Pulse Ox O2 Delivery O2 Flow Rate FiO2 03/05/17 17:11 98.7 82 16 162/105 98 Orders Ondansetron Inj (Zofran Inj) (03/05/17 17:30) Sodium Chlor 0.9% 1000 Ml Inj (Ns 1000 M (03/05/17 17:30) Morphine Inj (Morphine Inj) (03/05/17 17:30) Complete Blood Count With Diff (03/05/17 17:26) Basic Metabolic Panel (Bmp) (03/05/17 17:26) Methylprednisolone So Succ Inj (Solumedr (03/05/17 17:30) Heparin Central Flush (Heparin Central F (03/05/17 17:30) Heparin Central Flush (Heparin Central F (03/05/17 18:00) Labs Laboratory Tests Test 03/05/17 17:55 White Blood Count 7.9 TH/MM3 Red Blood Count 4.60 MIL/MM3 Hemoglobin 13.6 GM/DL Hematocrit 40.6 % Mean Corpuscular Volume 88.3 FL Mean Corpuscular Hemoglobin 29.5 PG Mean Corpuscular Hemoglobin 33.4 % Concent Red Cell Distribution Width 13.3 % Platelet Count 263 TH/MM3 Mean Platelet Volume 7.7 FL Neutrophils (%) (Auto) 71.4 % Lymphocytes (%) (Auto) 21.0 % Monocytes (%) (Auto) 4.6 % Eosinophils (%) (Auto) 0.8 % Basophils (%) (Auto) 2.2 % Neutrophils # (Auto) 5.5 TH/MM3 Lymphocytes # (Auto) 1.7 TH/MM3 Monocytes # (Auto) 0.4 TH/MM3 Eosinophils # (Auto) 0.1 TH/MM3 Basophils # (Auto) 0.2 TH/MM3 CBC Comment DIFF FINAL Differential Comment Sodium Level 143 MEQ/L Potassium Level 3.4 MEQ/L Chloride Level 106 MEQ/L Carbon Dioxide Level 27.9 MEQ/L Anion Gap 9 MEQ/L Blood Urea Nitrogen 7 MG/DL Creatinine 0.57 MG/DL Estimat Glomerular Filtration 138 ML/MIN Rate Random Glucose 99 MG/DL Calcium Level 8.7 MG/DL MDM Medical Decision Making Medical Screen Exam Complete: Yes Emergency Medical Condition: Yes Medical Record Reviewed: Yes Differential Diagnosis Lupus flare, gastroenteritis, colitis, chronic pain, fibromyalgia Narrative Course I have reviewed the patient's electronic medical record. She's been here before for lupus flare. She was here for chest pain 2 months ago. Port is accessed I gave her 1 L normal saline IV as well as a dose of IV Zofran and IV morphine for symptom relief I gave her IV Solu-Medrol CBC is normal Metabolic profile is normal On recheck she looks comfortable, texting away in the bed Diagnosis Primary Impression: Lupus Qualified Code: M32.9 - Systemic lupus erythematosus, unspecified SLE type, unspecified organ involvement status Additional Impression: Myalgia Additional Instructions: The patient was advised to follow up with their physician and return if they worsen. Med/Other Pt SpecificInfo: Other Disposition: 01 DISCHARGE HOME Condition: Stable Yao Carbajal MD Mar 05, 2017 17:29
[2017-03-05] MEDS ORDERED: methylPREDNISolone SOD SUCC 125 MG/2 ML VIAL IV PUSH ONE (17:30)
[2017-03-05] MEDS ORDERED: ONDANSETRON HCL 4 MG/2 ML VIAL IVP ONE (17:30)
[2017-03-05] MEDS ORDERED: SODIUM CHLOR 0.9% 1000 ML INJ 1,000 ML IV ONE (17:30)
[2017-03-05] MEDS ORDERED: MORPHINE SULFATE 4 MG/ML INJ IV PUSH ONE (17:30)
[2017-03-05] MEDS ORDERED: NITR1CAP36 PO (17:32)
[2017-03-05] MEDS ORDERED: LEVOTAB PO (17:32)
[2017-03-05] MEDS ORDERED: TRIA0.5O TOPICAL (17:32)
[2017-03-05 18:00] LABS: AUTOMATED NEUTROPHIL # 5.5 TH/MM3 (1.8-7.7); BASOPHIL # 0.2 TH/MM3 (0-0.2); BASOPHIL % 2.2 % (0.0-2.0); EOSINOPHIL # 0.1 TH/MM3 (0-0.4); EOSINOPHIL % 0.8 % (0.0-4.0); HEMATOCRIT 40.6 % (35.0-46.0); HEMO FLAGS DIFF FINAL; LYMPHOCYTE # 1.7 TH/MM3 (1.0-4.8); MEAN CELL VOLUME 88.3 FL (80.0-100.0); MEAN CORPUSCULAR HEMOGLOBIN 29.5 PG (27.0-34.0); MEAN CORPUSCULAR HGB CONC 33.4 % (32.0-36.0); MONO % 4.6 % (0.0-8.0); NEUT % 71.4 % (16.0-70.0); PLATELET COUNT 263 TH/MM3 (150-450); RED CELL DISTRIBUTION WIDTH 13.3 % (11.6-17.2); WHITE BLOOD COUNT 7.9 TH/MM3 (4.0-11.0)
[2017-03-05 18:09] LABS: POTASSIUM 3.4 MEQ/L (3.5-5.1)
[2017-03-05 18:13] LABS: BICARBONATE 27.9 MEQ/L (21.0-32.0)
[2017-03-05 18:53] VITALS: BP 142/87
== END 2017-03-05 19:00 | disposition home or self-care (01) ==
LOC: PHED 17:05
DX: M32.9 Systemic lupus erythematosus, unspecified (principal); M79.1 Myalgia; M19.90 Unspecified osteoarthritis, unspecified site; J45.909 Unspecified asthma, uncomplicated; I10 Essential (primary) hypertension; Z96.651 Presence of right artificial knee joint
CPT/HCPCS: 80048; 85025; 96361; 96374; 96375; 99283; J1642; J2270; J2405; J2930; J7030

== ENCOUNTER 2017-03-12 22:49 | Emergency (ER) | payer MEDICARE, OTHER ==
[~2017-03-12] VITALS: Ht 165.1 cm; Wt 119.0 kg
[~2017-03-12 22:49] MED LIST changes: -AMBI10TA PO; -FOLI5CAP PO; +LEVOTAB PO; +NITR1CAP36 PO; +TRIA0.5O TOPICAL; -[UNRECOGNIZED DRUG - CODE] PO
[2017-03-12 22:54] VITALS: BP 161/99; PULSE 88; RESP 14; TEMP 98.2; O2SAT 97
[2017-03-12 23:12] VITALS: BP 161/99; PULSE 88; RESP 14; TEMP 98.2; O2SAT 97
--- NOTE | 2017-03-12 23:35 | PD ---
HPI Chief Complaint: Pain: Acute or Chronic Time Seen by Provider: 23:26 Travel History International Travel<30 days: No Contact w/Intl Traveler<30days: No Traveled to known affect area: No History of Present Illness HPI The patient is a 46-year-old female who complains of back pain for 5 days. The pain is on the left side of her back and not midline. She states occasionally there is some tingling in her leg but usually not. The patient has had surgery several times for discs on her back. She is on pain management because of fibromyalgia, arthritis, degenerative disc disease, anxiety/depression, migraine headaches and her chronic back pain. She takes Zanaflex, 30 mg oxycodone every 6 hours, gabapentin, Zofran, methotrexate and fentanyl patch as well as prednisone for this pain. She denies any bladder or bowel dysfunction. PFSH Past Medical History Hx Anticoagulant Therapy: No Arthritis: Yes Asthma: Yes Blood Disorders: No Heart Rhythm Problems: No Cancer: No Cardiovascular Problems: Yes (htn on meds) High Cholesterol: No Chemotherapy: No Chest Pain: No Congestive Heart Failure: No COPD: No Cerebrovascular Accident: No Diabetes: No Diminished Hearing: No Endocrine: No Gastrointestinal Disorders: Yes (ACID REFLUX; GALL BLADDER DISEASE ) GERD: Yes Glaucoma: No Genitourinary: Yes (HX KIDNEY INFECTIONS) Headaches: Yes Hepatitis: No Hiatal Hernia: No Hypertension: Yes Immune Disorder: Yes (LUPUS; FIBROMYALGHIA) Medical other: Yes Musculoskeletal: Yes (ARTHRITIS; JOINT PAIN; FIBROMYALGHIA) Neurologic: Yes (DEGENERATIVE DISK DISEASE; MIGRAINE HEADACHES) Psychiatric: Yes (ANXIETY & DEPRESSION) Reproductive: No Respiratory: Yes (asthma) Immunizations Current: Yes Migraines: No Myocardial Infarction: No Radiation Therapy: No Seizures: No Sickle Cell Disease: No Sleep Apnea: No Thyroid Disease: No Ulcer: No Tetanus Vaccination: < 5 Years ?: Not Past Surgical History Abdominal Surgery: No AICD: No Appendectomy: No Arteriovenous Shunt: No Body Medical Devices: TOTAL RIGHT KNEE; L5 & S1 HARDWARE; CERVICAL HARDWARE - SMART PORT Cardiac Surgery: No Cholecystectomy: Yes Ear Surgery: No Endocrine Surgery: No Eye Surgery: No Genitourinary Surgery: Yes (bladder tuck 2002) Gynecologic Surgery: Yes (partial hysterectomy 2002; ROMAN TUBAL LIGATION ) Hysterectomy: Yes Insulin Pump: No Joint Replacement: Yes (TOTAL RIGHT KNEE; l5 & S1 HARDWARE; CERVICAL HARDWARE) Neurologic Surgery: Yes (LUMBAR SPINAL FUSION 1998, CERVICAL FUSION C3-C4 2013) Oral Surgery: No Pacemaker: No Thoracic Surgery: No Other Surgery: Yes (IMPLANTATION OF SMART PORT) Social History Alcohol Use: No Tobacco Use: No Substance Use: No Allergies-Medications (Allergen,Severity, Reaction): Coded Allergies: Pyridium (Verified Allergy, Severe, CAN'T BREATHE, 03/05/17) HIVES, ITCHING, SWEATS Uncoded Allergies: BRAZIL NUTS (Allergy, Severe, THROAT CLOSES; THROAT SWELLING, 03/05/17) . IV CONTRAST DYE (Allergy, Unknown, Hives, 03/05/17) .PT STATES SHE CAN PRE MEDITATED WITH BENADRYL WITH NO REACTION Reported Meds & Prescriptions Reported Meds & Active Scripts Active Reported Nitrofurantoin Macrocrystal 100 Mg Cap 100 Mg PO QID Levocetirizine 5 Mg Tab 5 Mg PO DAILY Triamcinolone Topical 0.5 % Oint 1 Applic TOPICAL BID Cardizem CD 24 HR (Diltiazem CD 24 HR) 360 Mg Caper 360 Mg PO DAILY Prednisone 5 Mg Tab 10 Mg PO DAILY Fentanyl Patch 72 HR (Fentanyl) 50 Mcg/Hr Patch 50 Mcg T-DERMAL Q72H Remove old patch when new one placed. Benlysta Inj (Belimumab) 120 Mg Inj 120 Mg INJ MONTHLY Methotrexate 2.5 Mg Tab 20 Mg PO Q7D Ventolin Hfa 18 GM Inh (Albuterol Sulfate) 90 Mcg/Act Aer 2 Puff INH Q4-6H PRN Cymbalta DR (Duloxetine HCl) 60 Mg Capdr 60 Mg PO DAILY Omeprazole 20 Mg Tab 20 Mg PO DAILY Zofran (Ondansetron HCl) 4 Mg Tab 4 Mg PO Q6HR PRN Gabapentin 800 Mg Tab 800 Mg PO TID Oxycodone (Oxycodone HCl) 30 Mg Tab 30 Mg PO Q6HR PRN Zanaflex (Tizanidine HCl) 4 Mg Cap 2 Mg PO TID Review of Systems Except as stated in HPI: all other systems reviewed are Neg Physical Exam Narrative GENERAL: Well-nourished, obese patient in moderate apparent distress with her left back pain. SKIN: Focused skin assessment warm/dry. HEAD: Normocephalic. EYES: No scleral icterus. No injection or drainage. NECK: Supple, trachea midline. No JVD or lymphadenopathy. CARDIOVASCULAR: Regular rate and rhythm without murmurs, gallops, or rubs. RESPIRATORY: Breath sounds equal bilaterally. No accessory muscle use. GASTROINTESTINAL: Abdomen soft, non-tender, nondistended. MUSCULOSKELETAL: No cyanosis, or edema. BACK: There is tenderness about 10 cm to the left of midline on the back. There is only minimal midline tenderness. There is no right tenderness present. Straight leg raising is essentially normal, deep tendon reflexes are 0 bilaterally both patella Achilles and pinprick shows slight decreased pinprick on the left. Data Data Last Documented VS Vital Signs Date Time Temp Pulse Resp B/P Pulse Ox O2 Delivery O2 Flow Rate FiO2 03/12/17 23:12 98.2 88 14 161/99 97 03/12/17 22:54 Room Air MDM Medical Decision Making Medical Screen Exam Complete: Yes Emergency Medical Condition: Yes Medical Record Reviewed: Yes Differential Diagnosis Acute lumbar strain, herniated nucleus pulposus, lumbar radiculopathy Narrative Course The patient's tenderness as well to the left of midline. She appears to have muscle tenderness in the tenderness over the spine itself. Impression: Acute lumbar muscle strain Plan: The patient be given a shot of Flexeril and morphine. She has a pain management physician and I do not want to prescribe parallel drugs when he is trying to control her medications. Diagnosis Primary Impression: Strain of lumbar paraspinal muscle Additional Instructions: As we discussed, follow-up with your pain management physician. Rest as best you can and try a heating pad on its lowest setting and interposing a towel between your skin and the pad. Warmth is desirable but not hot. Med/Other Pt SpecificInfo: No Change to Meds Disposition: 01 DISCHARGE HOME Naresh Geiger MD Mar 12, 2017 23:35
[2017-03-12] MEDS ORDERED: ORPHENADRINE INJ 60 MG/2 ML AMP IM ONE (23:45)
[2017-03-12] MEDS ORDERED: ONDANSETRON HCL 4 MG/2 ML VIAL IV ONE (23:45)
[2017-03-12] MEDS ORDERED: MORPHINE SULFATE 4 MG/ML INJ IM ONE (23:45)
[2017-03-13 00:12] VITALS: RESP 18
[2017-03-13 00:19] VITALS: BP 155/92
== END 2017-03-13 00:56 | disposition home or self-care (01) ==
LOC: PHED 22:49
DX: I10 Essential (primary) hypertension (principal); M19.90 Unspecified osteoarthritis, unspecified site; J45.909 Unspecified asthma, uncomplicated; M32.9 Systemic lupus erythematosus, unspecified; S39.012A Strain of muscle, fascia and tendon of lower back, initial encounter; M79.7 Fibromyalgia; F32.9 Major depressive disorder, single episode, unspecified; F41.9 Anxiety disorder, unspecified; X58.XXXA Exposure to other specified factors, initial encounter
CPT/HCPCS: 96372; 96374; 99283; J2270; J2360; J2405

== ENCOUNTER 2017-04-29 20:58 | Emergency (ER) | payer MEDICARE, OTHER ==
[~2017-04-29] VITALS: Ht 165.1 cm; Wt 121.0 kg
[2017-04-29 21:02] VITALS: BP 149/100; PULSE 90; RESP 16; TEMP 98.3; O2SAT 100
--- NOTE | 2017-04-29 21:37 | PD ---
HPI Chief Complaint: Cardiac Complaint Time Seen by Provider: 21:21 Travel History International Travel<30 days: No Contact w/Intl Traveler<30days: No Traveled to known affect area: No History of Present Illness HPI 46-year-old female with history of lupus here for evaluation of possible lupus flare. For the last 4 days the patient has been having palpitations, diffuse body aches, and headache. She has had similar symptoms in the past with lupus flares. She is also complaining of sore throat. She is having mild dyspnea. No cough. No chest pain. No fevers. She has been seen in the emergency Department in the past for similar presentations PFSH Past Medical History Hx Anticoagulant Therapy: No Arthritis: Yes Asthma: Yes Blood Disorders: No Heart Rhythm Problems: No Cancer: No Cardiovascular Problems: Yes (htn on meds) High Cholesterol: No Chemotherapy: No Chest Pain: No Congestive Heart Failure: No COPD: No Cerebrovascular Accident: No Diabetes: No Diminished Hearing: No Endocrine: No Gastrointestinal Disorders: Yes (ACID REFLUX; GALL BLADDER DISEASE ) GERD: Yes Glaucoma: No Genitourinary: Yes (HX KIDNEY INFECTIONS) Headaches: Yes Hepatitis: No Hiatal Hernia: No Hypertension: Yes Immune Disorder: Yes (LUPUS; FIBROMYALGHIA) Musculoskeletal: Yes (ARTHRITIS; JOINT PAIN; FIBROMYALGHIA) Neurologic: Yes (DEGENERATIVE DISK DISEASE; MIGRAINE HEADACHES) Psychiatric: Yes (ANXIETY & DEPRESSION) Reproductive: No Respiratory: Yes (asthma) Immunizations Current: Yes Migraines: No Myocardial Infarction: No Radiation Therapy: No Seizures: No Sickle Cell Disease: No Sleep Apnea: No Thyroid Disease: No Ulcer: No ?: Not Past Surgical History Abdominal Surgery: No AICD: No Appendectomy: No Arteriovenous Shunt: No Body Medical Devices: TOTAL RIGHT KNEE; L5 & S1 HARDWARE; CERVICAL HARDWARE - SMART PORT Cardiac Surgery: No Cholecystectomy: Yes Ear Surgery: No Endocrine Surgery: No Eye Surgery: No Genitourinary Surgery: Yes (bladder tuck 2002) Gynecologic Surgery: Yes (partial hysterectomy 2002; ROMAN TUBAL LIGATION ) Hysterectomy: Yes Insulin Pump: No Joint Replacement: Yes (TOTAL RIGHT KNEE; l5 & S1 HARDWARE; CERVICAL HARDWARE) Neurologic Surgery: Yes (LUMBAR SPINAL FUSION 1998, CERVICAL FUSION C3-C4 2013) Oral Surgery: No Pacemaker: No Thoracic Surgery: No Other Surgery: Yes (IMPLANTATION OF SMART PORT) Social History Alcohol Use: No Tobacco Use: No Substance Use: No Allergies-Medications (Allergen,Severity, Reaction): Coded Allergies: Pyridium (Verified Allergy, Severe, CAN'T BREATHE, 04/29/17) HIVES, ITCHING, SWEATS Uncoded Allergies: BRAZIL NUTS (Allergy, Severe, THROAT CLOSES; THROAT SWELLING, 03/05/17) . IV CONTRAST DYE (Allergy, Unknown, Hives, 03/05/17) .PT STATES SHE CAN PRE MEDITATED WITH BENADRYL WITH NO REACTION Reported Meds & Prescriptions Reported Meds & Active Scripts Active Reported Nitrofurantoin Macrocrystal 100 Mg Cap 100 Mg PO QID Levocetirizine 5 Mg Tab 5 Mg PO DAILY Triamcinolone Topical 0.5 % Oint 1 Applic TOPICAL BID Cardizem CD 24 HR (Diltiazem CD 24 HR) 360 Mg Caper 360 Mg PO DAILY Prednisone 5 Mg Tab 10 Mg PO DAILY Fentanyl Patch 72 HR (Fentanyl) 50 Mcg/Hr Patch 50 Mcg T-DERMAL Q72H Remove old patch when new one placed. Benlysta Inj (Belimumab) 120 Mg Inj 120 Mg INJ MONTHLY Methotrexate 2.5 Mg Tab 20 Mg PO Q7D Ventolin Hfa 18 GM Inh (Albuterol Sulfate) 90 Mcg/Act Aer 2 Puff INH Q4-6H PRN Cymbalta DR (Duloxetine HCl) 60 Mg Capdr 60 Mg PO DAILY Omeprazole 20 Mg Tab 20 Mg PO DAILY Zofran (Ondansetron HCl) 4 Mg Tab 4 Mg PO Q6HR PRN Gabapentin 800 Mg Tab 800 Mg PO TID Oxycodone (Oxycodone HCl) 30 Mg Tab 30 Mg PO Q6HR PRN Zanaflex (Tizanidine HCl) 4 Mg Cap 2 Mg PO TID Review of Systems Except as stated in HPI: all other systems reviewed are Neg Physical Exam Narrative GENERAL: Well-developed, well-nourished, overall very well-appearing, no acute distress, ambulated to the restroom without difficulty and without assistance. SKIN: Focused skin assessment warm/dry. No rash. HEAD: Atraumatic. Normocephalic. EYES: Pupils equal and round. No scleral icterus. No injection or drainage. ENT: No nasal bleeding or discharge. Mucous membranes pink and moist. Normal pharynx. NECK: Trachea midline. No JVD. No nuchal rigidity. CARDIOVASCULAR: Regular rate and rhythm. RESPIRATORY: No accessory muscle use. Clear to auscultation. Breath sounds equal bilaterally. GASTROINTESTINAL: Abdomen soft, non-tender, nondistended. MUSCULOSKELETAL: No obvious deformities. No clubbing. No cyanosis. No edema. NEUROLOGICAL: Awake and alert. No obvious cranial nerve deficits. Motor grossly within normal limits. Normal speech. PSYCHIATRIC: Appropriate mood and affect; insight and judgment normal. Data Data Last Documented VS Vital Signs Date Time Temp Pulse Resp B/P Pulse Ox O2 Delivery O2 Flow Rate FiO2 04/29/17 22:10 75 16 180/89 97 Room Air 04/29/17 21:02 98.3 Orders Electrocardiogram (04/29/17 21:34) Ckmb (Isoenzyme) Profile (04/29/17 21:34) Complete Blood Count With Diff (04/29/17 21:34) Comprehensive Metabolic Panel (04/29/17 21:34) Magnesium (Mg) (04/29/17 21:34) Prothrombin Time / Inr (Pt) (04/29/17 21:34) Act Partial Throm Time (Ptt) (04/29/17 21:34) Troponin I (04/29/17 21:34) Chest, Single Ap (04/29/17 21:34) Ecg Monitoring (04/29/17 21:34) Iv Access Insert/Monitor (04/29/17 21:34) Oximetry (04/29/17 21:34) Sodium Chloride 0.9% Flush (Ns Flush) (04/29/17 21:45) Beta Hcg (Quant/Titer) (04/29/17 21:34) Morphine Inj (Morphine Inj) (04/29/17 21:45) Methylprednisolone So Succ Inj (Solumedr (04/29/17 21:45) Labs Laboratory Tests Test 04/29/17 22:08 White Blood Count 7.0 TH/MM3 Red Blood Count 4.07 MIL/MM3 Hemoglobin 12.1 GM/DL Hematocrit 36.7 % Mean Corpuscular Volume 90.1 FL Mean Corpuscular Hemoglobin 29.8 PG Mean Corpuscular Hemoglobin 33.1 % Concent Red Cell Distribution Width 14.6 % Platelet Count 232 TH/MM3 Mean Platelet Volume 8.0 FL Neutrophils (%) (Auto) 59.7 % Lymphocytes (%) (Auto) 26.8 % Monocytes (%) (Auto) 6.5 % Eosinophils (%) (Auto) 5.8 % Basophils (%) (Auto) 1.2 % Neutrophils # (Auto) 4.1 TH/MM3 Lymphocytes # (Auto) 1.9 TH/MM3 Monocytes # (Auto) 0.5 TH/MM3 Eosinophils # (Auto) 0.4 TH/MM3 Basophils # (Auto) 0.1 TH/MM3 CBC Comment DIFF FINAL Differential Comment Prothrombin Time 10.1 SEC Prothromb Time International 0.9 RATIO Ratio Activated Partial 29.8 SEC Thromboplast Time Sodium Level 141 MEQ/L Potassium Level 3.7 MEQ/L Chloride Level 106 MEQ/L Carbon Dioxide Level 29.4 MEQ/L Anion Gap 6 MEQ/L Blood Urea Nitrogen 9 MG/DL Creatinine 0.56 MG/DL Estimat Glomerular Filtration 140 ML/MIN Rate Random Glucose 95 MG/DL Calcium Level 8.1 MG/DL Magnesium Level 2.1 MG/DL Total Bilirubin 0.3 MG/DL Aspartate Amino Transf 11 U/L (AST/SGOT) Alanine Aminotransferase 16 U/L (ALT/SGPT) Alkaline Phosphatase 89 U/L Total Creatine Kinase 77 U/L Troponin I LESS THAN 0.02 NG/ML Total Protein 6.9 GM/DL Albumin 3.4 GM/DL Human Chorionic Gonadotropin, LESS THAN 1 Quant MIU/ML MDM Medical Decision Making Medical Screen Exam Complete: Yes Emergency Medical Condition: Yes Medical Record Reviewed: Yes Interpretation(s) EKG: Sinus, rate 72, normal axis, normal intervals, no acute ischemic abnormality Differential Diagnosis Lupus flare, myalgias, metabolic abnormality, ACS less likely, PE less likely Narrative Course Initial vital signs show heart rate 90, blood pressure 149/100, pulse ox 100% on room air, oral temp 98.3F. CBC is unremarkable. CMP is unremarkable. Cardiac enzymes are negative. Chest x-ray: No acute disease. Patient was made aware of all findings. On reassessment she is very comfortable on her cell phone. She is in no distress. She is still complaining of diffuse myalgias/pain as well as itching sensation in her mouth. Her oral pharynx is normal without lesions and without edema. There is no drooling or stridor. Normal phonation. Patient does not have chest pain and a knot believe her symptoms are cardiac in nature. At this point I will give her another dose of pain medication, and will discharge her home with outpatient follow-up with her primary care physicians. Since that she wishes to be discharged home. She was informed on when to return to the emergency department pitcher verbalizes understanding and agreement with plan. Diagnosis Primary Impression: Exacerbation of systemic lupus Referrals: Primary Care Physician 3 days Additional Instructions: Follow-up with your primary care physician this week. Return to the emergency department for worsening symptoms or any other concerns. Disposition: 01 DISCHARGE HOME Condition: Stable Tom Monreal MD Apr 29, 2017 21:37
[2017-04-29] MEDS ORDERED: SODIUM CHLORIDE 0.9% FLUSH 10 ML FLUSH IVF PRN (21:45)
[2017-04-29] MEDS ORDERED: MORPHINE SULFATE 4 MG/ML INJ IV PUSH ONE ×2 (21:45→23:15)
[2017-04-29] MEDS ORDERED: methylPREDNISolone SOD SUCC 125 MG/2 ML VIAL IV PUSH ONE (21:45)
--- NOTE | 2017-04-29 21:54 | RADHPO ---
EXAM DATE/TIME: 04/29/2017 21:38 [facility] COMPARISON: CHEST SINGLE AP, January 11, 2017, 22:43. INDICATIONS : Chest pain. MEDICAL HISTORY : Hypertension. Lupus. Gastroesophageal reflux disease. Asthma. SURGICAL HISTORY : None. ENCOUNTER: Initial ACUITY: 1 day PAIN SCORE: 4/10 LOCATION: Bilateral chest FINDINGS: A single view of the chest demonstrates the lungs to be symmetrically aerated without evidence of mas s, infiltrate or effusion. Right sided liliana catheter unchanged. The cardiomediastinal contours are unremarkable. Osseous structures are intact. CONCLUSION: No acute disease. Ryan Ramon MD on April 29, 2017 at 21:51 Board Certified Radiologist. This report was verified electronically.
[2017-04-29 22:10] VITALS: BP 180/89; PULSE 75; RESP 16; O2SAT 97
[2017-04-29 22:22] LABS: AUTOMATED NEUTROPHIL # 4.1 TH/MM3 (1.8-7.7); BASOPHIL # 0.1 TH/MM3 (0-0.2); BASOPHIL % 1.2 % (0.0-2.0); EOSINOPHIL # 0.4 TH/MM3 (0-0.4); EOSINOPHIL % 5.8 % (0.0-4.0); HEMATOCRIT 36.7 % (35.0-46.0); HEMO FLAGS DIFF FINAL; LYMPH % 26.8 % (9.0-44.0); LYMPHOCYTE # 1.9 TH/MM3 (1.0-4.8); MEAN CELL VOLUME 90.1 FL (80.0-100.0); MEAN CORPUSCULAR HEMOGLOBIN 29.8 PG (27.0-34.0); MEAN CORPUSCULAR HGB CONC 33.1 % (32.0-36.0); MONO % 6.5 % (0.0-8.0); NEUT % 59.7 % (16.0-70.0); PLATELET COUNT 232 TH/MM3 (150-450); RED BLOOD COUNT 4.07 MIL/MM3 (4.00-5.30); RED CELL DISTRIBUTION WIDTH 14.6 % (11.6-17.2)
[2017-04-29 22:55] LABS: CHLORIDE 106 MEQ/L (98-107); POTASSIUM 3.7 MEQ/L (3.5-5.1); SODIUM (NA) 141 MEQ/L (136-145)
[2017-04-29 22:59] LABS: ANION GAP 6 MEQ/L (5-15); BICARBONATE 29.4 MEQ/L (21.0-32.0); BLOOD UREA NITROGEN 9 MG/DL (7-18); MAGNESIUM 2.1 MG/DL (1.5-2.5)
[2017-04-29 23:02] LABS: ALT (GPT) 16 U/L (10-53); APTT (PATIENT) 29.8 SEC (24.3-30.1); AST (GOT) 11 U/L (15-37); GLOMERULAR FILTRATION RATE 140 ML/MIN (>89); INTERNATIONAL NORMALIZED RATIO 0.9 RATIO; PROTHROMBIN TIME - PATIENT 10.1 SEC (9.8-11.6)
[2017-04-29 23:04] LABS: TOTAL BILIRUBIN ADULT 0.3 MG/DL (0.2-1.0)
[2017-04-29 23:05] LABS: ALKALINE PHOSPHATASE 89 U/L (45-117)
[2017-04-29 23:07] LABS: BETA HCG QUANT LESS THAN 1 MIU/ML (0-5)
[2017-04-29 23:08] LABS: CREATINE KINASE 77 U/L (26-192)
[2017-04-29 23:10] VITALS: BP 178/94; PULSE 65; RESP 16; O2SAT 96
[2017-04-29] MEDS ORDERED: diphenhydrAMINE HCL 50 MG/ML VIAL IV PUSH ONE (23:15)
[2017-04-30 00:06] VITALS: RESP 16
--- NOTE | 2017-04-30 11:17 | EKG ---
Date Performed: 04/29/2017 Time Performed: 21:45:24 PTAGE: 46 years EKG: Sinus rhythm . Normal ECG Compared to prior tracing no significant change PREVIOUS TRACING : 01/12/2017 06.28 DOCTOR: Michele Muhammad Interpretating Date/Time 04/30/2017 11:15:26
== END 2017-04-30 00:27 | disposition home or self-care (01) ==
LOC: PHED 20:58
DX: M32.9 Systemic lupus erythematosus, unspecified (principal); M79.1 Myalgia; R51 Headache; R07.0 Pain in throat; R06.00 Dyspnea, unspecified; I10 Essential (primary) hypertension; Z79.899 Other long term (current) drug therapy; Z87.39 Personal history of other diseases of the musculoskeletal system and connective tissue; Z87.09 Personal history of other diseases of the respiratory system; Z86.79 Personal history of other diseases of the circulatory system; Z87.19 Personal history of other diseases of the digestive system; Z87.448 Personal history of other diseases of urinary system; Z86.69 Personal history of other diseases of the nervous system and sense organs; Z86.59 Personal history of other mental and behavioral disorders; Z86.2 Personal history of diseases of the blood and blood-forming organs and certain disorders involving the immune mechanism
CPT/HCPCS: 71010; 80053; 82550; 83735; 84484; 84702; 85025; 85610; 85730; 93005; 96374; 96375; 99285; J1200; J1642; J2270; J2930

== ENCOUNTER 2017-05-11 18:40 | Emergency (ER) | payer MEDICARE, MEDICAID ==
[~2017-05-11] VITALS: Ht 165.1 cm; Wt 120.7 kg
[2017-05-11 18:46] VITALS: BP 158/98; PULSE 77; RESP 18; TEMP 98.1; O2SAT 99
[2017-05-11] MEDS ORDERED: TRIA0.5O TOPICAL (19:08)
--- NOTE | 2017-05-11 19:09 | PD ---
HPI Chief Complaint: Skin Problem Time Seen by Provider: 19:15 Travel History International Travel<30 days: No Contact w/Intl Traveler<30days: No Traveled to known affect area: No History of Present Illness HPI 46-year-old female presents emergency department for evaluation of a rash on her low back 2 days. She reports the rash as burning and pruritic. Pain severity 3 out of 10. She reports symptoms worsen when area is rubbed. She has not attempted to use any [id number] remedies. She denies any recent changes to her soaps, detergents, lotions. She denies fever, chills, chest pain , or abdominal pain. PFSH Past Medical History Hx Anticoagulant Therapy: No Arthritis: Yes Asthma: Yes Blood Disorders: No Heart Rhythm Problems: No Cancer: No Cardiovascular Problems: Yes (htn on meds) High Cholesterol: No Chemotherapy: No Chest Pain: No Congestive Heart Failure: No COPD: No Cerebrovascular Accident: No Diabetes: No Diminished Hearing: No Endocrine: No Gastrointestinal Disorders: Yes (ACID REFLUX; GALL BLADDER DISEASE ) GERD: Yes Glaucoma: No Genitourinary: Yes (HX KIDNEY INFECTIONS) Headaches: Yes Hepatitis: No Hiatal Hernia: No Hypertension: Yes Immune Disorder: Yes (LUPUS; FIBROMYALGHIA) Medical other: Yes Musculoskeletal: Yes (ARTHRITIS; JOINT PAIN; FIBROMYALGHIA) Neurologic: Yes (DEGENERATIVE DISK DISEASE; MIGRAINE HEADACHES) Psychiatric: Yes (ANXIETY & DEPRESSION) Reproductive: No Respiratory: Yes (asthma) Immunizations Current: Yes Migraines: No Myocardial Infarction: No Radiation Therapy: No Seizures: No Sickle Cell Disease: No Sleep Apnea: No Thyroid Disease: No Ulcer: No Tetanus Vaccination: < 5 Years Influenza Vaccination: Yes ?: Not Past Surgical History Abdominal Surgery: No AICD: No Appendectomy: No Arteriovenous Shunt: No Body Medical Devices: TOTAL RIGHT KNEE; L5 & S1 HARDWARE; CERVICAL HARDWARE - SMART PORT Cardiac Surgery: No Cholecystectomy: Yes Ear Surgery: No Endocrine Surgery: No Eye Surgery: No Genitourinary Surgery: Yes (bladder tuck 2002) Gynecologic Surgery: Yes (partial hysterectomy 2002; ROMAN TUBAL LIGATION ) Hysterectomy: Yes Insulin Pump: No Joint Replacement: Yes (TOTAL RIGHT KNEE; l5 & S1 HARDWARE; CERVICAL HARDWARE) Neurologic Surgery: Yes (LUMBAR SPINAL FUSION 1998, CERVICAL FUSION C3-C4 2013) Oral Surgery: No Pacemaker: No Thoracic Surgery: No Other Surgery: Yes (IMPLANTATION OF SMART PORT) Social History Alcohol Use: No Tobacco Use: No Substance Use: No Allergies-Medications (Allergen,Severity, Reaction): Coded Allergies: Pyridium (Verified Allergy, Severe, CAN'T BREATHE, 05/11/17) HIVES, ITCHING, SWEATS Uncoded Allergies: BRAZIL NUTS (Allergy, Severe, THROAT CLOSES; THROAT SWELLING, 03/05/17) . IV CONTRAST DYE (Allergy, Unknown, Hives, 03/05/17) .PT STATES SHE CAN PRE MEDITATED WITH BENADRYL WITH NO REACTION Reported Meds & Prescriptions Reported Meds & Active Scripts Active Triamcinolone Topical 0.5 % Oint 1 Applic TOPICAL BID Reported Levocetirizine 5 Mg Tab 5 Mg PO DAILY Cardizem CD 24 HR (Diltiazem CD 24 HR) 360 Mg Caper 360 Mg PO DAILY Prednisone 5 Mg Tab 10 Mg PO DAILY Fentanyl Patch 72 HR (Fentanyl) 50 Mcg/Hr Patch 50 Mcg T-DERMAL Q72H Remove old patch when new one placed. Benlysta Inj (Belimumab) 120 Mg Inj 120 Mg INJ MONTHLY Methotrexate 2.5 Mg Tab 20 Mg PO Q7D Ventolin Hfa 18 GM Inh (Albuterol Sulfate) 90 Mcg/Act Aer 2 Puff INH Q4-6H PRN Cymbalta DR (Duloxetine HCl) 60 Mg Capdr 60 Mg PO DAILY Omeprazole 20 Mg Tab 20 Mg PO DAILY Gabapentin 800 Mg Tab 800 Mg PO TID Oxycodone (Oxycodone HCl) 30 Mg Tab 30 Mg PO Q6HR PRN Zanaflex (Tizanidine HCl) 4 Mg Cap 2 Mg PO TID Review of Systems Except as stated in HPI: all other systems reviewed are Neg Physical Exam Narrative GENERAL: Well-nourished, well-developed patient. SKIN: Focused skin assessment warm/dry. 8 x 3 cm area of macular erythema in the lumbar region consistent with contact dermatitis. HEAD: Normocephalic. EYES: No scleral icterus. No injection or drainage. NECK: Supple, trachea midline. No JVD or lymphadenopathy. CARDIOVASCULAR: Regular rate and rhythm without murmurs, gallops, or rubs. RESPIRATORY: Breath sounds equal bilaterally. No accessory muscle use. GASTROINTESTINAL: Abdomen soft, non-tender, nondistended. BACK: Nontender without obvious deformity. No CVA tenderness. Data Data Last Documented VS Vital Signs Date Time Temp Pulse Resp B/P Pulse Ox O2 Delivery O2 Flow Rate FiO2 05/11/17 18:46 98.1 77 18 158/98 99 MDM Medical Decision Making Medical Screen Exam Complete: Yes Emergency Medical Condition: Yes Differential Diagnosis Contact dermatitis, atopic dermatitis Narrative Course 46-year-old female presents emergency department for evaluation of a rash on her back 2 days. She reports the rash has burning and itching in nature. On evaluation the rash appears to be contact dermatitis. Patient was treated with topical steroids and OTC Benadryl. Instructed to follow up with her doctor. Diagnosis Primary Impression: Contact dermatitis Qualified Code: L25.9 - Contact dermatitis, unspecified contact dermatitis type, unspecified trigger Referrals: Primary Care Physician Additional Instructions: Take [id number] Benadryl as needed. Use the topical steroid as instructed. Follow-up with her primary doctor for reevaluation Scripts Triamcinolone Topical 0.5 % Oint1 Applic TOPICAL BID #15 GM Ref 0 Prov:Brittany Lee 05/11/17 Disposition: 01 DISCHARGE HOME Condition: Stable Brittany Lee May 11, 2017 19:09
== END 2017-05-11 19:22 | disposition home or self-care (01) ==
LOC: PHEFT 18:40
DX: L25.9 Unspecified contact dermatitis, unspecified cause (principal); I10 Essential (primary) hypertension; M32.9 Systemic lupus erythematosus, unspecified
CPT/HCPCS: 99283

== ENCOUNTER 2017-07-14 17:25 | Emergency (ER) | payer OTHER, MEDICAID ==
[~2017-07-14] VITALS: Ht 165.1 cm; Wt 121.8 kg
[~2017-07-14 17:25] MED LIST changes: -NITR1CAP36 PO; -ZOFR4TAB PO
[2017-07-14 17:40] VITALS: BP 155/87; PULSE 83; RESP 17; TEMP 98.7; O2SAT 97
[2017-07-14 18:00] VITALS: O2SAT 99
[2017-07-14] MEDS ORDERED: MYCO250C PO (18:06)
--- NOTE | 2017-07-14 18:08 | PD ---
HPI Chief Complaint: Pain: Acute or Chronic Time Seen by Provider: 17:56 Travel History International Travel<30 days: No Contact w/Intl Traveler<30days: No Traveled to known affect area: No History of Present Illness HPI Patient is a 47-year-old female presents to emergency department with "lupus flare". Patient states that she has been hurting for the past 10 days. Continue taking oxycodone at home and her 10 mg of prednisone which she takes every day without significant relief. She denies any chest pain or shortness breath. She states that every joint in her body hurts but particularly the ones in her wrist. She has not had a chest follow-up with a business project analyst because she states that she recently changed insurances and is trying to get back in. Denies any fever denies any nausea vomiting denies any possibility of she's had a hysterectomy in the past. PFSH Past Medical History Hx Anticoagulant Therapy: No Arthritis: Yes Asthma: Yes Blood Disorders: No Heart Rhythm Problems: No Cancer: No Cardiovascular Problems: Yes (htn on meds) High Cholesterol: No Chemotherapy: No Chest Pain: No Congestive Heart Failure: No COPD: No Cerebrovascular Accident: No Diabetes: No Diminished Hearing: Yes (bilateral hearing aids) Endocrine: No Gastrointestinal Disorders: Yes (ACID REFLUX; GALL BLADDER DISEASE ) GERD: Yes Glaucoma: No Genitourinary: Yes (HX KIDNEY INFECTIONS) Headaches: Yes Hepatitis: No Hiatal Hernia: No Hypertension: Yes Immune Disorder: Yes (LUPUS; FIBROMYALGHIA) Medical other: Yes Musculoskeletal: Yes (ARTHRITIS; JOINT PAIN; FIBROMYALGHIA) Neurologic: Yes (DEGENERATIVE DISK DISEASE; MIGRAINE HEADACHES) Psychiatric: Yes (ANXIETY & DEPRESSION) Reproductive: No Respiratory: Yes (asthma) Immunizations Current: Yes Migraines: No Myocardial Infarction: No Radiation Therapy: No Seizures: No Sickle Cell Disease: No Sleep Apnea: No Thyroid Disease: No Ulcer: No Tetanus Vaccination: < 5 Years Influenza Vaccination: Yes ?: Not Past Surgical History Abdominal Surgery: No AICD: No Appendectomy: No Arteriovenous Shunt: No Body Medical Devices: TOTAL RIGHT KNEE; L5 & S1 HARDWARE; CERVICAL HARDWARE - SMART PORT Cardiac Surgery: No Cholecystectomy: Yes Ear Surgery: No Endocrine Surgery: No Eye Surgery: No Genitourinary Surgery: Yes (bladder tuck 2002) Gynecologic Surgery: Yes (partial hysterectomy 2002; ROMAN TUBAL LIGATION ) Hysterectomy: Yes Insulin Pump: No Joint Replacement: Yes (TOTAL RIGHT KNEE; l5 & S1 HARDWARE; CERVICAL HARDWARE) Neurologic Surgery: Yes (LUMBAR SPINAL FUSION 1998, CERVICAL FUSION C3-C4 2013) Oral Surgery: No Pacemaker: No Thoracic Surgery: No Other Surgery: Yes (IMPLANTATION OF SMART PORT) Social History Alcohol Use: No Tobacco Use: No Substance Use: No Allergies-Medications (Allergen,Severity, Reaction): Coded Allergies: phenazopyridine (Unverified Allergy, Severe, CAN'T BREATHE, 07/14/17) HIVES, ITCHING, SWEATS Uncoded Allergies: BRAZIL NUTS (Allergy, Severe, THROAT CLOSES; THROAT SWELLING, 07/14/17) ... IV CONTRAST DYE (Allergy, Unknown, Hives, 07/14/17) ..PT STATES SHE CAN PRE MEDITATED WITH BENADRYL WITH NO REACTION Reported Meds & Prescriptions Reported Meds & Active Scripts Active Triamcinolone Topical 0.5 % Oint 1 Applic TOPICAL BID Reported Mycophenolate (Mycophenolate Mofetil) 250 Mg Cap 500 Mg PO BID Levocetirizine 5 Mg Tab 5 Mg PO DAILY Cardizem CD 24 HR (Diltiazem CD 24 HR) 360 Mg Caper 360 Mg PO DAILY Prednisone 5 Mg Tab 10 Mg PO DAILY Fentanyl Patch 72 HR (Fentanyl) 50 Mcg/Hr Patch 50 Mcg T-DERMAL Q72H Remove old patch when new one placed. Benlysta Inj (Belimumab) 120 Mg Inj 120 Mg INJ MONTHLY Ventolin Hfa 18 GM Inh (Albuterol Sulfate) 90 Mcg/Act Aer 2 Puff INH Q4-6H PRN Cymbalta DR (Duloxetine HCl) 60 Mg Capdr 60 Mg PO DAILY Omeprazole 20 Mg Tab 20 Mg PO DAILY Gabapentin 800 Mg Tab 800 Mg PO TID Oxycodone (Oxycodone HCl) 30 Mg Tab 30 Mg PO Q6HR PRN Zanaflex (Tizanidine HCl) 4 Mg Cap 2 Mg PO TID Review of Systems Except as stated in HPI: all other systems reviewed are Neg Physical Exam Narrative GENERAL: Well-developed well-nourished no obvious distress, overweight. SKIN: Focused skin assessment warm/dry, multiple surgical scars over multiple joints well healed. No rash no wound.. HEAD: Atraumatic. Normocephalic. EYES: Pupils equal and round. No scleral icterus. No injection or drainage. ENT: No nasal bleeding or discharge. Mucous membranes pink and moist. NECK: Trachea midline. No JVD. CARDIOVASCULAR: Regular rate and rhythm. No murmur appreciated. RESPIRATORY: No accessory muscle use. Clear to auscultation. Breath sounds equal bilaterally. GASTROINTESTINAL: Abdomen soft, non-tender, nondistended. Hepatic and splenic margins not palpable. MUSCULOSKELETAL: No obvious deformities. No clubbing. No cyanosis. No edema. NEUROLOGICAL: Awake and alert. No obvious cranial nerve deficits. Motor grossly within normal limits. Normal speech. PSYCHIATRIC: Appropriate mood and affect; insight and judgment normal. Data Data Last Documented VS Vital Signs Date Time Temp Pulse Resp B/P Pulse Ox O2 Delivery O2 Flow Rate FiO2 07/14/17 18:00 99 07/14/17 17:40 98.7 83 17 155/87 Orders Basic Metabolic Panel (Bmp) (07/14/17 18:03) Complete Blood Count With Diff (07/14/17 18:03) Urinalysis - C+S If Indicated (07/14/17 18:03) Iv Access Insert/Monitor (07/14/17 18:03) Ecg Monitoring (07/14/17 18:03) Oximetry (07/14/17 18:03) Sodium Chloride 0.9% Flush (Ns Flush) (07/14/17 18:15) Ed Urine Pregnancytest Poc (07/14/17 18:03) Morphine Inj (Morphine Inj) (07/14/17 18:15) Prednisone (Deltasone) (07/14/17 18:15) Urine Culture (07/14/17 18:30) Labs Laboratory Tests Test 07/14/17 18:30 White Blood Count 7.6 TH/MM3 Red Blood Count 4.05 MIL/MM3 Hemoglobin 12.2 GM/DL Hematocrit 36.2 % Mean Corpuscular Volume 89.4 FL Mean Corpuscular Hemoglobin 30.2 PG Mean Corpuscular Hemoglobin 33.8 % Concent Red Cell Distribution Width 12.9 % Platelet Count 225 TH/MM3 Mean Platelet Volume 8.1 FL Neutrophils (%) (Auto) 57.2 % Lymphocytes (%) (Auto) 29.8 % Monocytes (%) (Auto) 8.1 % Eosinophils (%) (Auto) 3.7 % Basophils (%) (Auto) 1.2 % Neutrophils # (Auto) 4.3 TH/MM3 Lymphocytes # (Auto) 2.3 TH/MM3 Monocytes # (Auto) 0.6 TH/MM3 Eosinophils # (Auto) 0.3 TH/MM3 Basophils # (Auto) 0.1 TH/MM3 CBC Comment DIFF FINAL Differential Comment Urine Color YELLOW Urine Turbidity CLOUDY Urine pH 6.0 Urine Specific [place] 1.026 Urine Protein NEG mg/dL Urine Glucose (UA) NEG mg/dL Urine Ketones NEG mg/dL Urine Occult Blood NEG Urine Nitrite POS Urine Bilirubin NEG Urine Leukocyte Esterase MOD Urine RBC 0-3 /hpf Urine WBC 50-99 /hpf Urine Squamous Epithelial > 8 /hpf Cells Urine Bacteria MANY /hpf Microscopic Urinalysis Comment CULTURE INDICATED Sodium Level 141 MEQ/L Potassium Level 3.8 MEQ/L Chloride Level 105 MEQ/L Carbon Dioxide Level 31.5 MEQ/L Anion Gap 5 MEQ/L Blood Urea Nitrogen 10 MG/DL Creatinine 0.67 MG/DL Estimat Glomerular Filtration 114 ML/MIN Rate Random Glucose 94 MG/DL Calcium Level 8.5 MG/DL [facility] Medical Decision Making Medical Screen Exam Complete: Yes Emergency Medical Condition: Yes Differential Diagnosis Lupus flare, chronic pain, joint pain, Celexa light abnormality, infection seems unlikely. Narrative Course Patient roomed emergency department, her port was accessed, she was given prednisone 60 mg by mouth as well as morphine 6 mg IV. She appears well in no obvious distress. Patient's labs pending at 1900 shift change discussed with Dr. Lamb to follow-up labs and reassess patient and disposition appropriate. Tommy Drew MD Jul 14, 2017 18:08
[2017-07-14] MEDS ORDERED: predniSONE 20 MG TAB PO ONE (18:15)
[2017-07-14] MEDS ORDERED: SODIUM CHLORIDE 0.9% FLUSH 10 ML FLUSH IV FLUSH PRN (18:15)
[2017-07-14] MEDS ORDERED: MORPHINE SULFATE 8 MG/ML INJ IV PUSH ONE (18:15)
[2017-07-14 18:47] LABS: BLOOD, URINE NEG (NEG); GLUCOSE,URINE NEG (NEG); KETONE, URINE NEG (NEG)
[2017-07-14 18:49] LABS: AUTOMATED NEUTROPHIL # 4.3 TH/MM3 (1.8-7.7); BASOPHIL # 0.1 TH/MM3 (0-0.2); BASOPHIL % 1.2 % (0.0-2.0); EOSINOPHIL # 0.3 TH/MM3 (0-0.4); EOSINOPHIL % 3.7 % (0.0-4.0); HEMATOCRIT 36.2 % (35.0-46.0); HEMO FLAGS DIFF FINAL; LYMPH % 29.8 % (9.0-44.0); LYMPHOCYTE # 2.3 TH/MM3 (1.0-4.8); MEAN CELL VOLUME 89.4 FL (80.0-100.0); MEAN CORPUSCULAR HEMOGLOBIN 30.2 PG (27.0-34.0); MEAN CORPUSCULAR HGB CONC 33.8 % (32.0-36.0); MONO % 8.1 % (0.0-8.0); NEUT % 57.2 % (16.0-70.0); PLATELET COUNT 225 TH/MM3 (150-450); RED BLOOD COUNT 4.05 MIL/MM3 (4.00-5.30); RED CELL DISTRIBUTION WIDTH 12.9 % (11.6-17.2); WHITE BLOOD COUNT 7.6 TH/MM3 (4.0-11.0)
[2017-07-14 18:53] LABS: NITRITE,URINE POS (NEG); URINE COLOR YELLOW (YELLW/STRAW)
[2017-07-14 18:54] LABS: BACTERIA, URINE MANY /hpf; POTASSIUM 3.8 MEQ/L (3.5-5.1); RBC, URINE 0-3 /hpf (0-3); SQUAMOUS EPITHELIAL CELL URINE > 8 /hpf (0-5)
[2017-07-14 18:55] LABS: COMMENT (UR) CULTURE INDICATED; CULTURE IF INDICATED CULTURE INDICATED
[2017-07-14 18:57] LABS: BICARBONATE 31.5 MEQ/L (21.0-32.0)
[2017-07-14 19:00] VITALS: BP 161/69; PULSE 81; RESP 17; TEMP 97.9; O2SAT 98
--- NOTE | 2017-07-14 19:14 | PD ---
Physical Exam Date Seen by Provider: Jul 14, 2017 Time Seen by Provider: 19:13 Narrative Accepted in transfer of care from Dr. Drew Data Data Last Documented VS Vital Signs Date Time Temp Pulse Resp B/P Pulse Ox O2 Delivery O2 Flow Rate FiO2 07/14/17 21:20 98.0 69 18 150/78 Room Air 07/14/17 20:15 98 Orders Basic Metabolic Panel (Bmp) (07/14/17 18:03) Complete Blood Count With Diff (07/14/17 18:03) Urinalysis - C+S If Indicated (07/14/17 18:03) Iv Access Insert/Monitor (07/14/17 18:03) Ecg Monitoring (07/14/17 18:03) Oximetry (07/14/17 18:03) Sodium Chloride 0.9% Flush (Ns Flush) (07/14/17 18:15) Ed Urine Pregnancytest Poc (07/14/17 18:03) Morphine Inj (Morphine Inj) (07/14/17 18:15) Prednisone (Deltasone) (07/14/17 18:15) Urine Culture (07/14/17 18:30) Ceftriaxone Inj (Rocephin Inj) (07/14/17 20:30) Oxycodone-Acetamin 7.5-325 Mg (Percocet (07/14/17 21:00) Heparin Central Flush (Heparin Central F (07/14/17 21:30) Labs Laboratory Tests Test 07/14/17 18:30 White Blood Count 7.6 TH/MM3 Red Blood Count 4.05 MIL/MM3 Hemoglobin 12.2 GM/DL Hematocrit 36.2 % Mean Corpuscular Volume 89.4 FL Mean Corpuscular Hemoglobin 30.2 PG Mean Corpuscular Hemoglobin 33.8 % Concent Red Cell Distribution Width 12.9 % Platelet Count 225 TH/MM3 Mean Platelet Volume 8.1 FL Neutrophils (%) (Auto) 57.2 % Lymphocytes (%) (Auto) 29.8 % Monocytes (%) (Auto) 8.1 % Eosinophils (%) (Auto) 3.7 % Basophils (%) (Auto) 1.2 % Neutrophils # (Auto) 4.3 TH/MM3 Lymphocytes # (Auto) 2.3 TH/MM3 Monocytes # (Auto) 0.6 TH/MM3 Eosinophils # (Auto) 0.3 TH/MM3 Basophils # (Auto) 0.1 TH/MM3 CBC Comment DIFF FINAL Differential Comment Urine Color YELLOW Urine Turbidity CLOUDY Urine pH 6.0 Urine Specific [place] 1.026 Urine Protein NEG mg/dL Urine Glucose (UA) NEG mg/dL Urine Ketones NEG mg/dL Urine Occult Blood NEG Urine Nitrite POS Urine Bilirubin NEG Urine Leukocyte Esterase MOD Urine RBC 0-3 /hpf Urine WBC 50-99 /hpf Urine Squamous Epithelial > 8 /hpf Cells Urine Bacteria MANY /hpf Microscopic Urinalysis Comment CULTURE INDICATED Sodium Level 141 MEQ/L Potassium Level 3.8 MEQ/L Chloride Level 105 MEQ/L Carbon Dioxide Level 31.5 MEQ/L Anion Gap 5 MEQ/L Blood Urea Nitrogen 10 MG/DL Creatinine 0.67 MG/DL Estimat Glomerular Filtration 114 ML/MIN Rate Random Glucose 94 MG/DL Calcium Level 8.5 MG/DL [facility] Medical Record Reviewed: Yes Supervised Visit with ABDIRAHMAN: No Interpretation(s) CBC & BMP Diagram 07/14/17 18:30 Urinalysis: Positive for nitrites leukocyte Estrace WBCs and many bacteria; culture indicated Differential Diagnosis Accepted in transfer of care from Dr. whaley; Please refer to Dr. Drew's dictation Narrative Course Accepted in transfer of care from Dr. Drew for follow-up of pending labs and response to medication as well as disposition Patient is identified to have abnormal urinalysis consistent with UTI patient will be started on IV antibiotics first dose here and once pain is adequate control plan will be to discharge with oral antibiotic Patient clinically improved; patient reports she cannot take sulfa antibiotics. ; Patient will be discharged with Keflex. Patient is encouraged to follow-up with her primary care provider on Sunday. Prior to discharge to home patient requesting additional pain medication given a one time dose of percocet 7.5/325 Diagnosis Primary Impression: Lupus Qualified Code: L93.0 - Lupus erythematosus, unspecified form Additional Impression: UTI (urinary tract infection) Referrals: Primary Care Physician 2 days Patient Instructions: General Instructions, Narcotic given in the ED Additional Instruction: Increase fluid hydration Complete course of antibiotic as prescribed as tolerated Follow-up with primary care provider call office on Sunday to schedule follow- up appointment Return to the emergency department for any concerns or change in condition Take acetaminophen/Tylenol as needed for fever 100.4F or greater Med/Other Pt SpecificInfo: Prescription(s) given Scripts Cephalexin (Keflex)500 Mg [id number] Mg PO QID 10 Days Ref 0 Prov:Heather Lamb MD 07/14/17 Disposition: 01 DISCHARGE HOME Condition: Stable Heather Lamb MD Jul 14, 2017 19:14
[2017-07-14 20:15] VITALS: BP 159/68; PULSE 66; RESP 17; O2SAT 98
[2017-07-14] MEDS ORDERED: CEPH-460 PO (20:25)
[2017-07-14] MEDS ORDERED: cefTRIAXone INJ 1,000 MG in SODIUM CHLORIDE 0.9% INJ 100 ML IV ONE (20:30)
[2017-07-14] MEDS ORDERED: oxyCODONE/ACETAMINOPHEN 7.5 MG/325 MG TAB PO ONE (21:00)
[2017-07-14 21:20] VITALS: BP 150/78; PULSE 69; RESP 18; TEMP 98
[2017-09-13] MEDS ORDERED: PRED5TAB PO (15:16)
[2017-09-13] MEDS ORDERED: MYCO500T PO (15:16)
[2017-09-13] MEDS ORDERED: TOPI1TAB36 PO (16:21)
[2017-09-13] MEDS ORDERED: ZOLP5TAB3 PO (16:23)
[2017-09-13] MEDS ORDERED: CARD360C PO (16:24)
== END 2017-07-14 22:21 | disposition home or self-care (01) ==
LOC: PHED 17:25
DX: L93.0 Discoid lupus erythematosus (principal); N39.0 Urinary tract infection, site not specified; B96.20 Unspecified Escherichia coli [E. coli] as the cause of diseases classified elsewhere
CPT/HCPCS: 80048; 81001; 85025; 87077; 87086; 87186; 96365; 96375; 99284; J0696; J1642; J2270; J7512

== ENCOUNTER 2017-08-21 22:40 | Emergency (ER) | payer MEDICARE, MEDICAID ==
[~2017-08-21] VITALS: Ht 165.1 cm; Wt 118.2 kg
[~2017-08-21 22:40] MED LIST changes: +CEPH-460 PO; -METH2.5T PO; +MYCO250C PO
[2017-08-21 22:44] VITALS: BP 194/89; PULSE 86; RESP 16; TEMP 97.5; O2SAT 97
[2017-08-21] MEDS ORDERED: SODIUM CHLORIDE 0.9% FLUSH 10 ML FLUSH IVF PRN (23:30)
[2017-08-21] MEDS ORDERED: ONDANSETRON HCL 4 MG/2 ML VIAL IV PUSH ONE (23:30)
[2017-08-21] MEDS ORDERED: MORPHINE SULFATE 8 MG/ML INJ IV PUSH ONE (23:30)
[2017-08-21] MEDS ORDERED: MACR100C3 PO (23:37)
--- NOTE | 2017-08-21 23:42 | PD ---
HPI Chief Complaint: Headache Time Seen by Provider: 01:10 Travel History International Travel<30 days: No Contact w/Intl Traveler<30days: No Traveled to known affect area: No History of Present Illness HPI 47-year-old female with history of migraine and lupus presents to the emergency department for complaint of one week of migraine. Headache is typical of her migraines with photophobia and nausea and mild blurring of vision. Patient states she issues [id number] intervention such as caffeine and Excedrin without relief. Patient is followed by pain management doctor for her lupus and previously has been on Fioricet for migraines and reportedly is intolerant of Imitrex for migraine management. Patient does not report any ongoing fever over the past week but states one day she felt very hot but she was out shopping and when she checked her temperature at home it was "101 something"but resolved. No report of sinus pressure drainage sore throat earache neck pain productive cough shortness of breath chest pain abdominal pain she has experienced nausea does not report vomiting does not report any dysuria frequency urgency hematuria has had some right-sided flank pain and states that she is fearful that could be pleurisy type pain but does not complain of this at this time no report of diarrhea or constipation. Patient has had partial hysterectomy and tubal ligation in the past also has had cystocele repair. Patient has extensive past medical history that includes arthritis asthma hypertension GERD gallbladder disease urinary tract infection migraine lupus fibromyalgia degenerative disc disease with previous surgery to the neck and lumbar spine anxiety depression knee surgery cholecystectomy and denies tobacco or alcohol use. Patient does not describe headache as sudden onset thunderclap or worst ever. Patient states headache is been gradual. No report of upper or lower extremity numbness tingling or weakness. No report of bladder or bowel dysfunction or saddle anesthesia. PFS Past Medical History Narrative Medical partial hysterectomy tubal ligation cystocele repair arthritis asthma hypertension GERD gallbladder disease urinary tract infection migraine lupus fibromyalgia degenerative disc disease neck surgery lumbar spine surgery anxiety depression knee surgery cholecystectomy and denies tobacco or alcohol use. Nursing notes reviewed Hx Anticoagulant Therapy: No Arthritis: Yes Asthma: Yes Blood Disorders: No Heart Rhythm Problems: No Cancer: No Cardiovascular Problems: Yes (htn on meds) High Cholesterol: No Chemotherapy: No Chest Pain: No Congestive Heart Failure: No COPD: No Cerebrovascular Accident: No Diabetes: No Diminished Hearing: Yes (bilateral hearing aids) Endocrine: No Gastrointestinal Disorders: Yes (ACID REFLUX; GALL BLADDER DISEASE ) GERD: Yes Glaucoma: No Genitourinary: Yes (HX KIDNEY INFECTIONS) Headaches: Yes Hepatitis: No Hiatal Hernia: No Hypertension: Yes Immune Disorder: Yes (LUPUS; FIBROMYALGHIA) Musculoskeletal: Yes (ARTHRITIS; JOINT PAIN; FIBROMYALGHIA) Neurologic: Yes (DEGENERATIVE DISK DISEASE; MIGRAINE HEADACHES) Psychiatric: Yes (ANXIETY & DEPRESSION) Reproductive: No Respiratory: Yes (asthma) Immunizations Current: Yes Migraines: No Myocardial Infarction: No Radiation Therapy: No Seizures: No Sickle Cell Disease: No Sleep Apnea: No Thyroid Disease: No Ulcer: No Past Surgical History Abdominal Surgery: No AICD: No Appendectomy: No Arteriovenous Shunt: No Body Medical Devices: TOTAL RIGHT KNEE; L5 & S1 HARDWARE; CERVICAL HARDWARE - SMART PORT Cardiac Surgery: No Cholecystectomy: Yes Ear Surgery: No Endocrine Surgery: No Eye Surgery: No Genitourinary Surgery: Yes (bladder tuck 2002) Gynecologic Surgery: Yes (partial hysterectomy 2002; ROMAN TUBAL LIGATION ) Hysterectomy: Yes Insulin Pump: No Joint Replacement: Yes (TOTAL RIGHT KNEE; l5 & S1 HARDWARE; CERVICAL HARDWARE) Neurologic Surgery: Yes (LUMBAR SPINAL FUSION 1998, CERVICAL FUSION C3-C4 2013) Oral Surgery: No Pacemaker: No Thoracic Surgery: No Other Surgery: Yes (IMPLANTATION OF SMART PORT) Social History Alcohol Use: No Tobacco Use: No Substance Use: No Allergies-Medications (Allergen,Severity, Reaction): Coded Allergies: phenazopyridine (Unverified Allergy, Severe, CAN'T BREATHE, 08/21/17) HIVES, ITCHING, SWEATS Uncoded Allergies: BRAZIL NUTS (Allergy, Severe, THROAT CLOSES; THROAT SWELLING, 07/14/17) ... IV CONTRAST DYE (Allergy, Unknown, Hives, 07/14/17) ..PT STATES SHE CAN PRE MEDITATED WITH BENADRYL WITH NO REACTION Reported Meds & Prescriptions Reported Meds & Active Scripts Active Triamcinolone Topical 0.5 % Oint 1 Applic TOPICAL BID Reported Macrodantin (Nitrofurantoin Macrocrystal) 100 Mg Cap 100 Mg PO HS Mycophenolate (Mycophenolate Mofetil) 250 Mg Cap 500 Mg PO BID Levocetirizine 5 Mg Tab 5 Mg PO DAILY Cardizem CD 24 HR (Diltiazem CD 24 HR) 360 Mg Caper 360 Mg PO DAILY Prednisone 5 Mg Tab 10 Mg PO DAILY Fentanyl Patch 72 HR (Fentanyl) 50 Mcg/Hr Patch 50 Mcg T-DERMAL Q72H Remove old patch when new one placed. Benlysta Inj (Belimumab) 120 Mg Inj 120 Mg INJ MONTHLY Ventolin Hfa 18 GM Inh (Albuterol Sulfate) 90 Mcg/Act Aer 2 Puff INH Q4-6H PRN Cymbalta DR (Duloxetine HCl) 60 Mg Capdr 60 Mg PO DAILY Omeprazole 20 Mg Tab 20 Mg PO DAILY Gabapentin 800 Mg Tab 800 Mg PO TID Oxycodone (Oxycodone HCl) 30 Mg Tab 30 Mg PO Q6HR PRN Zanaflex (Tizanidine HCl) 4 Mg Cap 2 Mg PO TID Review of Systems Except as stated in HPI: all other systems reviewed are Neg General / Constitutional: Positive: Fever (x 1 day last week), No: Chills Eyes: Positive: Blurred Vision, Photophobia, No: Diploplia HENT: Positive: Headaches, No: Neck Stiffness, Neck Pain Cardiovascular: No: Chest Pain or Discomfort Respiratory: No: Shortness of Breath Gastrointestinal: Positive: Nausea, No: Vomiting, Diarrhea, Abdominal Pain Genitourinary: Positive: Flank Pain, No: Dysuria Musculoskeletal: No: Myalgias, Arthralgias Skin: No Rash Neurologic: Positive: Headache, No: Weakness, Dizziness, Syncope, Focal Abnormalities, Coordination Problem, Change in Mentation, Slurred Speech Psychiatric: No: Anxiety Hematologic/Lymphatic: No: Lymph Node Enlargement Physical Exam Narrative GENERAL: Well-developed well-nourished female in no acute distress no respiratory distress; GCS 15 SKIN: Warm and dry. HEAD: Atraumatic. Normocephalic. EYES: Pupils equal and round. No scleral icterus. No injection or drainage. Funduscopic exam no papilledema. ENT: No nasal bleeding or discharge. Mucous membranes pink and moist. NECK: Trachea midline. No JVD. Supple no meningismus no nuchal rigidity CARDIOVASCULAR: Regular rate and rhythm. RESPIRATORY: No accessory muscle use. Clear to auscultation. Breath sounds equal bilaterally. GASTROINTESTINAL: Abdomen soft, non-tender, nondistended. Hepatic and splenic margins not palpable. MUSCULOSKELETAL: Extremities without clubbing, cyanosis, or edema. No obvious deformities. NEUROLOGICAL: Awake and alert. No obvious cranial nerve deficits. Motor grossly within normal limits. Five out of 5 muscle strength in the arms and legs. Normal speech. PSYCHIATRIC: Appropriate mood and affect; insight and judgment normal. Data Data Last Documented VS Vital Signs Date Time Temp Pulse Resp B/P (MAP) Pulse Ox O2 Delivery O2 Flow Rate FiO2 08/22/17 00:37 84 18 148/87 (107) 97 Room Air 08/21/17 22:44 97.5 Orders Orders Complete Blood Count With Diff (08/21/17 23:30) Comprehensive Metabolic Panel (08/21/17 23:30) Westergren Sedimentation Rate (08/21/17 23:30) Beta Hcg (Quant/Titer) (08/21/17 23:30) Prothrombin Time / Inr (Pt) (08/21/17 23:30) Act Partial Throm Time (Ptt) (08/21/17 23:30) Ecg Monitoring (08/21/17 23:30) Iv Access Insert/Monitor (08/21/17 23:30) Oximetry (08/21/17 23:30) Sodium Chloride 0.9% Flush (Ns Flush) (08/21/17 23:30) Magnesium (Mg) (08/21/17 23:30) Urinalysis - C+S If Indicated (08/21/17 23:30) Ed Urine Pregnancytest Poc (08/21/17 23:30) Troponin I (08/21/17 23:30) Chest, Single Ap (08/21/17 ) Electrocardiogram (08/21/17 ) Morphine Inj (Morphine Inj) (08/21/17 23:30) Ondansetron Inj (Zofran Inj) (08/21/17 23:30) Ct Brain W/O Iv Contrast(Rout) (08/22/17 00:06) Urine Culture (08/21/17 23:55) Potassium Chloride (Kcl) (08/22/17 01:15) Ketorolac Inj (Toradol Inj) (08/22/17 01:45) Labs Laboratory Tests Test 08/21/17 23:55 08/22/17 00:15 Urine Color JOHANN Urine Turbidity SLIGHT Urine pH 6.0 Urine Specific [place] 1.027 Urine Protein NEG mg/dL Urine Glucose (UA) NEG mg/dL Urine Ketones TRACE mg/dL Urine Occult Blood NEG Urine Nitrite NEG Urine Bilirubin NEG Urine Leukocyte Esterase NEG Urine WBC 0-2 /hpf Urine Squamous Epithelial Cells > 8 /hpf Urine Amorphous Sediment FEW Urine Bacteria MOD /hpf Urine Mucus MOD /lpf Microscopic Urinalysis Comment CULTURE INDICATED White Blood Count 7.6 TH/MM3 Red Blood Count 4.14 MIL/MM3 Hemoglobin 12.1 GM/DL Hematocrit 37.2 % Mean Corpuscular Volume 89.8 FL Mean Corpuscular Hemoglobin 29.4 PG Mean Corpuscular Hemoglobin Concent 32.7 % Red Cell Distribution Width 13.4 % Platelet Count 232 TH/MM3 Mean Platelet Volume 7.8 FL Neutrophils (%) (Auto) 60.9 % Lymphocytes (%) (Auto) 27.0 % Monocytes (%) (Auto) 8.2 % Eosinophils (%) (Auto) 3.3 % Basophils (%) (Auto) 0.6 % Neutrophils # (Auto) 4.8 TH/MM3 Lymphocytes # (Auto) 2.0 TH/MM3 Monocytes # (Auto) 0.6 TH/MM3 Eosinophils # (Auto) 0.2 TH/MM3 Basophils # (Auto) 0.0 TH/MM3 CBC Comment DIFF FINAL Differential Comment Erythrocyte Sedimentation Rate 1 mm/hr Prothrombin Time 10.7 SEC Prothromb Time International Ratio 1.0 RATIO Activated Partial Thromboplast Time 33.6 SEC Blood Urea Nitrogen 7 MG/DL Creatinine 0.57 MG/DL Random Glucose 104 MG/DL Total Protein 7.0 GM/DL Albumin 3.2 GM/DL Calcium Level 8.6 MG/DL Magnesium Level 1.8 MG/DL Alkaline Phosphatase 84 U/L Aspartate Amino Transf (AST/SGOT) 12 U/L Alanine Aminotransferase (ALT/SGPT) 15 U/L Total Bilirubin 0.3 MG/DL Sodium Level 141 MEQ/L Potassium Level 3.1 MEQ/L Chloride Level 105 MEQ/L Carbon Dioxide Level 29.1 MEQ/L Anion Gap 7 MEQ/L Estimat Glomerular Filtration Rate 137 ML/MIN Troponin I LESS THAN 0.02 NG/ML Human Chorionic Gonadotropin, Quant 1 MIU/ML [facility] Medical Decision Making Medical Screen Exam Complete: Yes Emergency Medical Condition: Yes Medical Record Reviewed: Yes Interpretation(s) EKG: Sinus rhythm rate 75 nonspecific T wave changes no acute ST elevation or injury pattern change noted Urinalysis moderate bacteria culture indicated Sedimentation rate 1, not elevated Troponin I less than 0.02, not elevated HCG 1, not elevated Last Impressions Chest X-Ray 08/21/17 0000 Signed Impressions: Service Date/Time: Monday, August 21, 2017 23:54 - CONCLUSION: 1. No active disease. [id number] in superior vena cava. Brian Martínez MD CBC & BMP Diagram 08/22/17 00:15 Total Protein 7.0, Albumin 3.2 L, Calcium Level 8.6, Magnesium Level 1.8, Alkaline Phosphatase 84, Aspartate Amino Transf (AST/SGOT) 12 L, Alanine Aminotransferase (ALT/SGPT) 15, Total Bilirubin 0.3 Vital Signs Date Time Temp Pulse Resp B/P (MAP) Pulse Ox O2 Delivery O2 Flow Rate FiO2 08/22/17 00:37 84 18 148/87 (107) 97 Room Air 08/21/17 23:43 86 18 08/21/17 23:43 18 97 Room Air 08/21/17 22:44 97.5 86 16 194/89 (124) 97 CT brain w/o contrast: CONCLUSION: No acute intracranial abnormalities. Questionable enlargement of the sella turcica. This could be evaluated with MRI as an outpatient. Brian Martínez MD on August 22, 2017 at 1:13 Board Certified Radiologist. This report was verified electronically. Differential Diagnosis Cephalgia-migraine versus tension versus ICH versus vasculitis, exacerbation of lupus, UTI, pneumonia, dehydration, chronic pain syndrome; unlikely ICH, PE Narrative Course Patient is on monitor IV access obtained specimens collected and sent for resulting performed which showed normal sinus rhythm nonspecific T wave changes no acute ST elevation or injury pattern patient's troponin I is less than 0.02 found to be in normal range chest x-ray reveals no acute process just identifies Yrmsjs-p-Erxq in these appear to be in a cave of patient's sedimentation rate also is not elevated at a value of 1 CBC is automated differential values are normal range was metabolic panel is remarkable for hypokalemia of 3.1 patient given oral replacement of potassium 40 mEq Patient administered morphine sulfate 5 mg IV Zofran 4 mg IV pain reassessed at 1 AM has decreased from 8/10 intensity 6/10 intensity in view of abnormal lab values patient will be given Toradol 30 mg IV and few of urinalysis with moderate bacteria and moderate mucus with culture indicated patient will be given first dose of oral antibiotic as well Vital signs are stable and patient is stable for outpatient management and follow-up with her primary care provider and her pain management doctor as needed. Diagnosis Primary Impression: Migraine headache Qualified Codes: G43.909 - Migraine, unspecified, not intractable, without status migrainosus Additional Impressions: UTI (urinary tract infection) Qualified Codes: N39.0 - Urinary tract infection, site not specified Hypokalemia Referrals: Primary Care Physician call for appointment Patient Instructions: General Instructions, Narcotic given in the ED Additional Instructions: Increase potassium containing foods and beverages in dietary intake Complete course of antibiotic as prescribed Follow-up with your primary care provider Return to the emergency department for any concerns or change condition Take acetaminophen as needed for fever 100.4F or greater Med/Other Pt SpecificInfo: Prescription(s) given Scripts Cephalexin (Keflex) 500 Mg Capsule 500 MG PO QID for Infection for 7 Days, CAP 0 Refills Prov: Heather Lamb MD 08/22/17 Disposition: 01 DISCHARGE HOME Condition: Stable Heather Lamb MD Aug 21, 2017 23:42
[2017-08-21 23:43] VITALS: RESP 18; O2SAT 97
[2017-08-22 00:31] LABS: AUTOMATED NEUTROPHIL # 4.8 TH/MM3 (1.8-7.7); BASOPHIL % 0.6 % (0.0-2.0); EOSINOPHIL # 0.2 TH/MM3 (0-0.4); EOSINOPHIL % 3.3 % (0.0-4.0); HEMATOCRIT 37.2 % (35.0-46.0); HEMO FLAGS DIFF FINAL; MEAN CELL VOLUME 89.8 FL (80.0-100.0); MEAN CORPUSCULAR HEMOGLOBIN 29.4 PG (27.0-34.0); MEAN CORPUSCULAR HGB CONC 32.7 % (32.0-36.0); MONO % 8.2 % (0.0-8.0); NEUT % 60.9 % (16.0-70.0); PLATELET COUNT 232 TH/MM3 (150-450); RED BLOOD COUNT 4.14 MIL/MM3 (4.00-5.30); RED CELL DISTRIBUTION WIDTH 13.4 % (11.6-17.2); WHITE BLOOD COUNT 7.6 TH/MM3 (4.0-11.0)
[2017-08-22 00:37] VITALS: BP 148/87; PULSE 84; RESP 18; O2SAT 97
[2017-08-22 00:38] LABS: BLOOD, URINE NEG (NEG); GLUCOSE,URINE NEG (NEG); KETONE, URINE TRACE mg/dL (NEG); NITRITE,URINE NEG (NEG)
[2017-08-22 00:39] LABS: CHLORIDE 105 MEQ/L (98-107); POTASSIUM 3.1 MEQ/L (3.5-5.1); SODIUM (NA) 141 MEQ/L (136-145)
[2017-08-22 00:42] LABS: ANION GAP 7 MEQ/L (5-15); BICARBONATE 29.1 MEQ/L (21.0-32.0); MAGNESIUM 1.8 MG/DL (1.5-2.5)
[2017-08-22 00:43] LABS: BLOOD UREA NITROGEN 7 MG/DL (7-18)
[2017-08-22 00:44] LABS: APTT (PATIENT) 33.6 SEC (24.3-30.1); PROTHROMBIN TIME - PATIENT 10.7 SEC (9.8-11.6)
[2017-08-22 00:46] LABS: ALT (GPT) 15 U/L (10-53); AST (GOT) 12 U/L (15-37); GLOMERULAR FILTRATION RATE 137 ML/MIN (>89)
[2017-08-22 00:47] LABS: TOTAL BILIRUBIN ADULT 0.3 MG/DL (0.2-1.0)
[2017-08-22 00:47] LABS: MUCUS URINE MOD /lpf (OCC); URINE COLOR AMBER (YELLW/STRAW)
[2017-08-22 00:48] LABS: ALKALINE PHOSPHATASE 84 U/L (45-117)
[2017-08-22 00:48] LABS: BACTERIA, URINE MOD /hpf; SQUAMOUS EPITHELIAL CELL URINE > 8 /hpf (0-5)
[2017-08-22 00:49] LABS: COMMENT (UR) CULTURE INDICATED; CULTURE IF INDICATED CULTURE INDICATED; WBC, URINE 0-2 /hpf (0-5)
--- NOTE | 2017-08-22 00:50 | RADRPT ---
EXAM DATE/TIME: 08/21/2017 23:54 [facility] COMPARISON: CHEST SINGLE AP, April 29, 2017, 21:38. INDICATIONS : Chest and abdominal pain. MEDICAL HISTORY : Hypertension. Lupus. Gastroesophageal reflux disease. Asthma. SURGICAL HISTORY : None. ENCOUNTER: Initial ACUITY: 1 day PAIN SCORE: 5/10 LOCATION: Bilateral lower chest FINDINGS: A single view of the chest demonstrates the lungs to be symmetrically aerated without evidence of mas s, infiltrate or effusion. The cardiomediastinal contours are unremarkable. Rnjyas-g-Rkow tip in sup erior vena cava. Osseous structures are intact. CONCLUSION: 1. No active disease. Inupft-y-Xpax in superior vena cava. Brian Martínez MD on August 22, 2017 at 0:48 Board Certified Radiologist. This report was verified electronically.
[2017-08-22 00:51] LABS: BETA HCG QUANT 1 MIU/ML (0-5)
[2017-08-22] MEDS ORDERED: POTASSIUM CHLORIDE 20 MEQ CONTROLLED RELEASE TAB PO ONE (01:15)
--- NOTE | 2017-08-22 01:18 | RADRPT ---
EXAM DATE/TIME: 08/22/2017 00:48 [facility] COMPARISON: No previous studies available for comparison. INDICATIONS : Cephalgia. RADIATION DOSE: 57.74 CTDIvol (mGy) MEDICAL HISTORY : None SURGICAL HISTORY : None. ENCOUNTER: Initial ACUITY: 2 weeks PAIN SCALE: 10/10 LOCATION: Bilateral cranial TECHNIQUE: Multiple contiguous axial images were obtained of the head. Using automated exposure control and adj ustment of the mA and/or kV according to patient size, radiation dose was kept as low as reasonably a chievable to obtain optimal diagnostic quality images. DICOM format image data is available electro nically for review and comparison. FINDINGS: CEREBRUM: The ventricles are normal for age. No evidence of midline shift, mass lesion, hemorrhage or acute in farction. No extra-axial fluid collections are seen. POSTERIOR FOSSA: The cerebellum and brainstem are intact. The 4th ventricle is midline. The cerebellopontine angle i s unremarkable. EXTRACRANIAL: The visualized portion of the orbits is intact. SKULL: The calvaria is intact. The sella does appear to be enlarged. No evidence of skull fracture. CONCLUSION: No acute intracranial abnormalities. Questionable enlargement of the sella turcica. This could be vance luated with MRI as an outpatient. Brian Martínez MD on August 22, 2017 at 1:13 Board Certified Radiologist. This report was verified electronically.
[2017-08-22] MEDS ORDERED: CEPH-460 PO (01:37)
[2017-08-22] MEDS ORDERED: KETOROLAC TROMETHAMINE 30 MG/ML (IVP) VIAL IV PUSH ONE (01:45)
[2017-08-22] MEDS ORDERED: NITROFURANTOIN MONOHYD MACROCR 100 MG CAP PO ONE (01:45)
[2017-08-22] MEDS ORDERED: CEPHALEXIN MONOHYDRATE 500 MG CAP PO ONE (01:45)
[2017-08-22 02:11] VITALS: BP 156/86; PULSE 84; RESP 18; O2SAT 97
--- NOTE | 2017-08-22 14:50 | EKG ---
Date Performed: 08/22/2017 Time Performed: 00:01:30 PTAGE: 47 years EKG: Sinus rhythm NONSPECIFIC T-WAVE ABNORMALITY BORDERLINE ECG PREVIOUS TRACING : 04/29/2017 21.45 Compared to prior tracing no significant change DOCTOR: Rossy Douglas Interpretating Date/Time 08/22/2017 14:49:50
[2017-09-13] MEDS ORDERED: PRED5TAB PO (15:16)
[2017-09-13] MEDS ORDERED: MYCO500T PO (15:16)
[2017-09-13] MEDS ORDERED: TOPI1TAB36 PO (16:21)
[2017-09-13] MEDS ORDERED: ZOLP5TAB3 PO (16:23)
[2017-09-13] MEDS ORDERED: CARD360C PO (16:24)
== END 2017-08-22 02:33 | disposition home or self-care (01) ==
LOC: PHED 22:40
DX: G43.909 Migraine, unspecified, not intractable, without status migrainosus (principal); N39.0 Urinary tract infection, site not specified; E87.6 Hypokalemia; R94.31 Abnormal electrocardiogram [ECG] [EKG]; I10 Essential (primary) hypertension; H91.93 Unspecified hearing loss, bilateral; Z87.39 Personal history of other diseases of the musculoskeletal system and connective tissue; Z87.09 Personal history of other diseases of the respiratory system; Z86.79 Personal history of other diseases of the circulatory system; Z87.19 Personal history of other diseases of the digestive system; Z87.448 Personal history of other diseases of urinary system; Z86.2 Personal history of diseases of the blood and blood-forming organs and certain disorders involving the immune mechanism; Z86.69 Personal history of other diseases of the nervous system and sense organs; Z86.59 Personal history of other mental and behavioral disorders
CPT/HCPCS: 70450; 71010; 80053; 81001; 83735; 84484; 84702; 84703; 85025; 85610; 85652; 85730; 87086; 93005; 96374; 96375; 99285; J1642; J1885; J2270; J2405

== ENCOUNTER 2017-11-26 18:50 | Emergency (ER) | payer MEDICAID, MEDICARE ==
[~2017-11-26] VITALS: Ht 165.1 cm; Wt 116.4 kg
[~2017-11-26 18:50] MED LIST changes: -CEPH-460 PO; +EPIP0.3I IM; +MACR100C3 PO; -MYCO250C PO; +MYCO500T PO; -OMEP20TA PO; +OMEP20TA93 PO; +TOPI100 PO; +ZOLP10TA3 PO; +[UNRECOGNIZED DRUG - SUPPLY]
[2017-11-26 19:11] VITALS: BP 169/76; PULSE 84; RESP 22; TEMP 98.7; O2SAT 100
--- NOTE | 2017-11-26 19:26 | PD ---
HPI Chief Complaint: Cold / Flu Symptoms Time Seen by Provider: 19:18 Travel History International Travel<30 days: No Contact w/Intl Traveler<30days: No Traveled to known affect area: No History of Present Illness HPI The patient is a 47-year-old female that has a cold and thoracic back pain for 2 weeks. She has lupus states she'll ice has a reduced immune system. It hurts around the right lateral scapular area. She denies any fever, nausea, vomiting or diarrhea. She does not smoke. She is not bringing up anything with her cough but does have rhinorrhea. The patient is a frequent visitor to emergency department. She states she does feel some wheezes at home. PFSH Past Medical History Hx Anticoagulant Therapy: No Arthritis: Yes Asthma: Yes Blood Disorders: No Heart Rhythm Problems: No Cancer: No Cardiovascular Problems: Yes (htn on meds) High Cholesterol: No Chemotherapy: No Chest Pain: No Congestive Heart Failure: No COPD: No Cerebrovascular Accident: No Diabetes: No Diminished Hearing: Yes (bilateral hearing aids) Endocrine: No Gastrointestinal Disorders: Yes (ACID REFLUX; GALL BLADDER DISEASE ) GERD: Yes Glaucoma: No Genitourinary: Yes (HX KIDNEY INFECTIONS) Headaches: Yes Hepatitis: No Hiatal Hernia: No Hypertension: Yes Immune Disorder: Yes (LUPUS; FIBROMYALGHIA) Musculoskeletal: Yes (ARTHRITIS; JOINT PAIN; FIBROMYALGHIA) Neurologic: Yes (DEGENERATIVE DISK DISEASE; MIGRAINE HEADACHES) Psychiatric: Yes (ANXIETY & DEPRESSION) Reproductive: No Respiratory: Yes (asthma) Immunizations Current: Yes Migraines: No Myocardial Infarction: No Radiation Therapy: No Seizures: No Sickle Cell Disease: No Sleep Apnea: No Thyroid Disease: No Ulcer: No ?: Not LMP: hysterectomy Past Surgical History Abdominal Surgery: No AICD: No Appendectomy: No Arteriovenous Shunt: No Body Medical Devices: TOTAL RIGHT KNEE; L5 & S1 HARDWARE; CERVICAL HARDWARE - SMART PORT Cardiac Surgery: No Cholecystectomy: Yes Ear Surgery: No Endocrine Surgery: No Eye Surgery: No Genitourinary Surgery: Yes (bladder tuck 2002) Gynecologic Surgery: Yes (partial hysterectomy 2002; ROMAN TUBAL LIGATION ) Hysterectomy: Yes Insulin Pump: No Joint Replacement: Yes (TOTAL RIGHT KNEE; l5 & S1 HARDWARE; CERVICAL HARDWARE) Neurologic Surgery: Yes (LUMBAR SPINAL FUSION 1998, CERVICAL FUSION C3-C4 2013) Oral Surgery: No Pacemaker: No Thoracic Surgery: No Other Surgery: Yes (IMPLANTATION OF SMART PORT) Social History Alcohol Use: No Tobacco Use: No Substance Use: No Allergies-Medications (Allergen,Severity, Reaction): Coded Allergies: Iodinated Contrast- Oral and IV Dye (Verified Allergy, Severe, throat closes , 11/26/17) phenazopyridine (Unverified Allergy, Severe, CAN'T BREATHE, 11/26/17) HIVES, ITCHING, SWEATS Uncoded Allergies: brazil nuts (Allergy, Severe, throat closes , 11/26/17) Reported Meds & Prescriptions Reported Meds & Active Scripts Active Omeprazole 20 Mg Tab 20 Mg PO DAILY Epipen 2-Moses Inj (Epinephrine) 0.3 Mg/0.3 Ml Pfpen 0.3 Mg IM ONCE PRN Cardizem CD 24 HR (Diltiazem CD 24 HR) 360 Mg Caper 360 Mg PO DAILY Ventolin Hfa 18 GM Inh (Albuterol Sulfate) 90 Mcg/Act Aer 2 Puff INH Q4-6H PRN Zolpidem (Zolpidem Tartrate) 10 Mg Tab 10 Mg PO HS PRN Topamax (Topiramate) 100 Mg Tab 100 Mg PO BID Prednisone 5 Mg Tab 5 Mg PO BID Triamcinolone Topical 0.5 % Oint 1 Applic TOPICAL BID Reported Mycophenolate (Mycophenolate Mofetil) 500 Mg Tab 500 Mg PO BID Macrodantin (Nitrofurantoin Macrocrystal) 100 Mg Cap 100 Mg PO HS Levocetirizine 5 Mg Tab 5 Mg PO DAILY Fentanyl Patch 72 HR (Fentanyl) 50 Mcg/Hr Patch 50 Mcg T-DERMAL Q72H Remove old patch when new one placed. Benlysta Inj (Belimumab) 120 Mg Inj 120 Mg INJ MONTHLY Cymbalta DR (Duloxetine HCl) 60 Mg Capdr 60 Mg PO DAILY Gabapentin 800 Mg Tab 800 Mg PO TID Oxycodone (Oxycodone HCl) 30 Mg Tab 30 Mg PO Q6HR PRN Zanaflex (Tizanidine HCl) 4 Mg Cap 2 Mg PO TID Review of Systems Except as stated in HPI: all other systems reviewed are Neg Physical Exam Narrative GENERAL: The patient is obese, alert, oriented 3 in no respiratory distress. Respirations are 22 and blood pressure 169/76 but oximetry is 100%. SKIN: Focused skin assessment warm/dry. HEAD: Atraumatic. Normocephalic. EYES: Pupils equal and round. No scleral icterus. No injection or drainage. ENT: No nasal bleeding or discharge. Mucous membranes pink and moist. NECK: Trachea midline. No JVD. CARDIOVASCULAR: Regular rate and rhythm. No murmur appreciated. RESPIRATORY: No accessory muscle use. Clear to auscultation. Breath sounds equal bilaterally. Specifically, no wheezes are heard. GASTROINTESTINAL: Abdomen soft, non-tender, nondistended. Hepatic and splenic margins not palpable. MUSCULOSKELETAL: No obvious deformities. No clubbing. No cyanosis. No edema. NEUROLOGICAL: Awake and alert. No obvious cranial nerve deficits. Motor grossly within normal limits. Normal speech. PSYCHIATRIC: Appropriate mood and affect; insight and judgment normal. Data Data Last Documented VS Vital Signs Date Time Temp Pulse Resp B/P (MAP) Pulse Ox O2 Delivery O2 Flow Rate FiO2 11/26/17 19:25 Room Air 11/26/17 19:11 98.7 84 22 169/76 (107) 100 Orders Orders Chest, Pa & Lat (11/26/17 19:27) [facility] Medical Decision Making Medical Screen Exam Complete: Yes Emergency Medical Condition: Yes Medical Record Reviewed: Yes Interpretation(s) The chest x-ray shows no acute cardiopulmonary disease. Differential Diagnosis Viral upper respiratory infection, chest wall pain, pneumonia, rib fracture, muscle strain back Narrative Course The patient has a viral upper respiratory infection and muscle strain thorax. There is no evidence of any of the other conditions listed above on imaging or clinically. She should try a heating pad. Diagnosis Primary Impression: Viral upper respiratory infection Additional Impression: Strain of muscle at thorax level Additional Instructions: As we discussed, turn the heating pad on its lowest setting an interpose a towel between your skin and the pad to avoid barcenas. Follow-up this week with your primary care physician. Med/Other Pt SpecificInfo: No Change to Meds Disposition: 01 DISCHARGE HOME Condition: Stable Naresh Geiger MD Nov 26, 2017 19:26
--- NOTE | 2017-11-26 20:08 | RADRPT ---
EXAM DATE/TIME: 11/26/2017 19:38 [facility] COMPARISON: CHEST SINGLE AP, August 21, 2017, 23:54. INDICATIONS : Cough and congestion. MEDICAL HISTORY : Hypertension. Lupus. Gastroesophageal reflux disease. Asthma. SURGICAL HISTORY : Tubal ligation. Port. ENCOUNTER: Initial ACUITY: 2 weeks PAIN SCORE: 0/10 LOCATION: Bilateral chest FINDINGS: The lungs are clear without infiltrate, nodule, or mass. There is no appreciable pleural effusion fo r technique. Heart and mediastinum are unremarkable. Right subclavian Ewhqwt-s-Vymr is present with tip overlapping the expected region of the SVC. Degenerative changes and hypertrophic changes are see n within the disc space and facets of the thoracic spine. CONCLUSION: No acute cardiopulmonary disease. Tarik Rivers MD on November 26, 2017 at 20:06 Board Certified Radiologist. This report was verified electronically.
[2017-11-26 20:29] VITALS: BP 165/87; TEMP 98.2
== END 2017-11-26 20:33 | disposition home or self-care (01) ==
LOC: PHED 18:50
DX: J06.9 Acute upper respiratory infection, unspecified (principal); B97.89 Other viral agents as the cause of diseases classified elsewhere; S29.012A Strain of muscle and tendon of back wall of thorax, initial encounter; X58.XXXA Exposure to other specified factors, initial encounter; I10 Essential (primary) hypertension; J45.909 Unspecified asthma, uncomplicated; K21.9 Gastro-esophageal reflux disease without esophagitis; M79.7 Fibromyalgia; M19.90 Unspecified osteoarthritis, unspecified site; G43.909 Migraine, unspecified, not intractable, without status migrainosus; F41.8 Other specified anxiety disorders
CPT/HCPCS: 71046; 99283

== ENCOUNTER 2018-03-31 19:16 | Emergency (ER) | payer MEDICARE, MEDICAID ==
[2018-03-31] MEDS: predniSONE 20 MG TAB PO (22:00)
== END 2018-03-31 22:17 | disposition home or self-care (01) ==
LOC: PHED 19:16
DX: M19.072 Primary osteoarthritis, left ankle and foot (principal); M77.32 Calcaneal spur, left foot; M32.9 Systemic lupus erythematosus, unspecified; M79.7 Fibromyalgia; M19.90 Unspecified osteoarthritis, unspecified site; I10 Essential (primary) hypertension; K21.9 Gastro-esophageal reflux disease without esophagitis; F41.9 Anxiety disorder, unspecified; J45.909 Unspecified asthma, uncomplicated
CPT/HCPCS: 73610; 99283

== ENCOUNTER 2018-05-05 17:52 | Emergency (ER) | payer MEDICARE, MEDICAID ==
[~2018-05-05] VITALS: Ht 165.1 cm; Wt 121.0 kg
[~2018-05-05 17:52] MED LIST changes: +PRED50 PO; -[UNRECOGNIZED DRUG - SUPPLY]
[2018-05-05 17:54] VITALS: BP 172/84; PULSE 88; RESP 18; TEMP 98.4; O2SAT 100
[2018-05-05] MEDS ORDERED: RESP: ALBUTEROL 2.5 MG/IPRATROPIUM 0.5 MG NEB (SCH) INH ONE ×2 (19:00→20:00)
[2018-05-05] MEDS ORDERED: predniSONE 20 MG TAB PO ONE (19:00)
--- NOTE | 2018-05-05 19:04 | PD ---
HPI Chief Complaint: Cold / Flu Symptoms Time Seen by Provider: 18:52 Travel History International Travel<30 days: No Contact w/Intl Traveler<30days: No Traveled to known affect area: No History of Present Illness HPI Patient comes to the emergency department complaining of cough and congestion that began more than 48 hours ago. Patient reports cough is dry and occasionally productive with yellowish-green phlegm. Patient reports that she had a fever of 101 but that resolved. Patient reports she has been taking over- the-counter TheraFlu for symptomatic relief as well as using her inhaler. She reports that she is feeling shortness of breath from time to time. Denies any nausea, vomiting, loss change in bowel or bladder, chest pain, or neck pain. Patient reports she feels congestion with some postnasal drip along with a cough. Denies any known sick contacts. PFSH Past Medical History Hx Anticoagulant Therapy: No Arthritis: Yes Asthma: Yes Blood Disorders: No Heart Rhythm Problems: No Cancer: No Cardiovascular Problems: Yes (htn on meds) High Cholesterol: No Chemotherapy: No Chest Pain: No Congestive Heart Failure: No COPD: No Cerebrovascular Accident: No Diabetes: No Diminished Hearing: Yes (bilateral hearing aids) Endocrine: No Gastrointestinal Disorders: Yes (ACID REFLUX; GALL BLADDER DISEASE ) GERD: Yes Glaucoma: No Genitourinary: Yes (HX KIDNEY INFECTIONS) Headaches: Yes Hepatitis: No Hiatal Hernia: No Hypertension: Yes Immune Disorder: Yes (LUPUS; FIBROMYALGHIA) Medical other: Yes Musculoskeletal: Yes (ARTHRITIS; JOINT PAIN; FIBROMYALGHIA) Neurologic: Yes (DEGENERATIVE DISK DISEASE; MIGRAINE HEADACHES) Psychiatric: Yes (ANXIETY & DEPRESSION) Reproductive: No Respiratory: Yes (asthma) Immunizations Current: Yes Migraines: No Myocardial Infarction: No Radiation Therapy: No Seizures: No Sickle Cell Disease: No Sleep Apnea: No Thyroid Disease: No Ulcer: No ?: Not Past Surgical History Abdominal Surgery: No AICD: No Appendectomy: No Arteriovenous Shunt: No Body Medical Devices: TOTAL RIGHT KNEE; L5 & S1 HARDWARE; CERVICAL HARDWARE - SMART PORT Cardiac Surgery: No Cholecystectomy: Yes Ear Surgery: No Endocrine Surgery: No Eye Surgery: No Genitourinary Surgery: Yes (bladder tuck 2002) Gynecologic Surgery: Yes (partial hysterectomy 2002; ROMAN TUBAL LIGATION ) Hysterectomy: Yes Insulin Pump: No Joint Replacement: Yes (TOTAL RIGHT KNEE; l5 & S1 HARDWARE; CERVICAL HARDWARE) Neurologic Surgery: Yes (LUMBAR SPINAL FUSION 1998, CERVICAL FUSION C3-C4 2013) Oral Surgery: No Pacemaker: No Thoracic Surgery: No Other Surgery: Yes (IMPLANTATION OF SMART PORT) Social History Alcohol Use: No Tobacco Use: No Substance Use: No Allergies-Medications (Allergen,Severity, Reaction): Coded Allergies: Iodinated Contrast- Oral and IV Dye (Verified Allergy, Severe, throat closes , 05/05/18) phenazopyridine (Unverified Allergy, Severe, CAN'T BREATHE, 05/05/18) HIVES, ITCHING, SWEATS Uncoded Allergies: brazil nuts (Allergy, Severe, throat closes ., 05/05/18) Reported Meds & Prescriptions Reported Meds & Active Scripts Active Prednisone 20 Mg Tab 40 Mg PO DAILY Take 40 mg (2 tablets) daily for 5 days Tessalon Perles (Benzonatate) 100 Mg Cap 200 Mg PO TID PRN Zithromax Z-Moses (Azithromycin) 250 Mg Dspk 250 Mg PO DIRECTED 500 MG (2 tabs) day 1, then 1 tab days 2-5. Omeprazole 20 Mg Tab 20 Mg PO DAILY Epipen 2-Moses Inj (Epinephrine) 0.3 Mg/0.3 Ml Pfpen 0.3 Mg IM ONCE PRN Cardizem CD 24 HR (Diltiazem CD 24 HR) 360 Mg Caper 360 Mg PO DAILY Ventolin Hfa 18 GM Inh (Albuterol Sulfate) 90 Mcg/Act Aer 2 Puff INH Q4-6H PRN Prednisone 5 Mg Tab 5 Mg PO BID Triamcinolone Topical 0.5 % Oint 1 Applic TOPICAL BID Reported Mycophenolate (Mycophenolate Mofetil) 500 Mg Tab 500 Mg PO BID Macrodantin (Nitrofurantoin Macrocrystal) 100 Mg Cap 100 Mg PO HS Levocetirizine 5 Mg Tab 5 Mg PO DAILY Fentanyl Patch 72 HR (Fentanyl) 50 Mcg/Hr Patch 50 Mcg T-DERMAL Q72H Remove old patch when new one placed. Benlysta Inj (Belimumab) 120 Mg Inj 120 Mg INJ MONTHLY Cymbalta DR (Duloxetine HCl) 60 Mg Capdr 60 Mg PO DAILY Gabapentin 800 Mg Tab 800 Mg PO TID Oxycodone (Oxycodone HCl) 30 Mg Tab 30 Mg PO Q6HR PRN Zanaflex (Tizanidine HCl) 4 Mg Cap 2 Mg PO TID Review of Systems Except as stated in HPI: all other systems reviewed are Neg Physical Exam Narrative GENERAL: Well-developed, overly nourished, in no acute distress, and non-ill appearing. SKIN: Focused skin assessment warm and dry. HEAD: Atraumatic. Normocephalic. EYES: Pupils equal and round. EOMI. No scleral icterus. No injection or drainage. ENT: No nasal bleeding or discharge. Mucous membranes pink and moist. Tympanic membranes pearly florian bilaterally. Posterior pharynx nonerythematous exudate. Uvula is midline. Patient reports tenderness to bilateral maxillary sinuses. NECK: Trachea midline. No cervical lymphadenopathy. Supple. No nuclear rigidity. CARDIOVASCULAR: Regular rate and rhythm. No murmur appreciated. RESPIRATORY: No accessory muscle use. No respiratory distress. Decreased breath sounds throughout. Breath sounds equal bilaterally. MUSCULOSKELETAL: No obvious deformities. No clubbing. No cyanosis. No edema. Full range of motion. NEUROLOGICAL: Awake and alert. No obvious cranial nerve deficits. Motor grossly within normal limits. Normal speech. PSYCHIATRIC: Appropriate mood and affect; insight and judgment normal. Data Data Last Documented VS Vital Signs Date Time Temp Pulse Resp B/P (MAP) Pulse Ox O2 Delivery O2 Flow Rate FiO2 05/05/18 18:46 18 100 Room Air 05/05/18 17:54 98.4 88 172/84 (113) Orders Orders Albuterol-Ipratropium Neb (Duoneb Neb) (05/05/18 19:00) Prednisone (Deltasone) (05/05/18 19:00) Chest, Single Ap (05/05/18 ) Influenzae A/B Antigen (05/05/18 19:17) Albuterol-Ipratropium Neb (Duoneb Neb) (05/05/18 20:00) Resp Mdi/Instruction (05/05/18 19:55) Benzonatate (Tessalon) (05/05/18 20:15) Ed Discharge Order (05/05/18 20:03) [facility] Medical Decision Making Medical Screen Exam Complete: Yes Emergency Medical Condition: Yes Interpretation(s) Last Impressions Chest X-Ray 05/05/18 0000 Signed Impressions: CONCLUSION: [id number] tip in superior vena cava. No active disease. Differential Diagnosis Bronchitis, pneumonia, asthma exacerbation, URI, viral syndrome, influenza Narrative Course The patient looks great and improved well with Nebulizer and steroid medication. The patient is moving air well and in no distress nor significant dyspnea, and oxygen saturation is within normal limits. There is no clinical or radiological evidence to suggest pneumonia at this time, however the patient may have a mild bronchitis. Diagnosis, plan of care and management were discussed with the patient who agreed with plan and feels better and ready to go home. The patient was instructed to return if worsen, worsening difficulty breathing or wheezing, persistent fever, chest pain or as needed. Patient in no obvious distress upon re-evaluation. All pertinent laboratory/ Radiology result(s) discussed with patient. Patient was asked if they wanted to speak to my attending, which the patient did not wish to do at this time. Any questions/concerns in reference to patient diagnosis/condition discussed and clarified prior to patient's discharge. Reinforced sheer importance of close follow up with patient's primary physician or primary care clinic. Instructed patient to return to ED immediately, if symptoms return/worsen. Patient showed understanding of above instructions. Further instructions and recommendations were detailed in discharge paperwork. Patient ambulated without difficulty out of ED at discharge. Diagnosis Primary Impression: Asthma with bronchitis Additional Impression: Sinusitis, acute maxillary Qualified Codes: J01.00 - Acute maxillary sinusitis, unspecified Patient Instructions: Acute Bronchitis (ED), Asthma (ED), General Instructions , Sinusitis (ED) Additional Instructions: Follow-up with your primary care physician this week for reevaluation. Take all medication as prescribed. Use your inhaler every 4 hours with spacer as instructed today for shortness of breath and cough for the next 3-4 days. Return to the emergency department if symptoms get worse. Med/Other Pt SpecificInfo: Prescription(s) given Scripts Prednisone (Prednisone) 20 Mg Tab 40 MG PO DAILY, #4 TAB 0 Refills Take 40 mg (2 tablets) daily for 5 days Prov: Yao Carbajal MD 05/05/18 Benzonatate (Tessalon Perles) 100 Mg Cap 200 MG PO TID Y for COUGH, #30 CAP 0 Refills Prov: Yao Carbajal MD 05/05/18 Azithromycin (Zithromax Z-Moses) 250 Mg Dspk 250 MG PO DIRECTED for Infection, #1 DSPK 0 Refills 500 MG (2 tabs) day 1, then 1 tab days 2-5. Prov: Yao Carbajal MD 05/05/18 Disposition: 01 DISCHARGE HOME Condition: Stable Pawel Arana May 05, 2018 19:04
--- NOTE | 2018-05-05 19:27 | RADRPT ---
EXAM DATE: 05/05/2018 7:20 PM EDT AGE/SEX: 47 years / Female INDICATIONS: Fever, cough. CLINICAL DATA: This is the patient's initial encounter. Patient reports that signs and symptoms have been present for 3 days and indicates a pain score of 0/10. MEDICAL/SURGICAL HISTORY: Hypertension. Lupus. Gastroesophageal reflux disease. Asthma. Non e. COMPARISON: [facility], CHEST SINGLE AP, 08/21/2017. . FINDINGS: A single AP view of the chest demonstrates the lungs to be symmetrically aerated without evidence of mass, infiltrate or effusion. The cardiomediastinal contours are unremarkable. Osseous structures a re intact. CONCLUSION: [id number] tip in superior vena cava. No active disease. Electronically signed by: Brian Martínez MD 05/05/2018 7:25 PM EDT
[2018-05-05] MEDS ORDERED: BENZ100 PO (20:01)
[2018-05-05] MEDS ORDERED: PRED20 PO (20:01)
[2018-05-05] MEDS ORDERED: ZITHTAB PO (20:01)
[2018-05-05] MEDS ORDERED: BENZONATATE 100 MG CAP PO ONE (20:15)
== END 2018-05-05 20:47 | disposition home or self-care (01) ==
LOC: PHED 17:52 → PHEFT 20:47
DX: J45.909 Unspecified asthma, uncomplicated (principal); J01.00 Acute maxillary sinusitis, unspecified; M19.90 Unspecified osteoarthritis, unspecified site; I10 Essential (primary) hypertension; K21.9 Gastro-esophageal reflux disease without esophagitis; M32.9 Systemic lupus erythematosus, unspecified; M79.7 Fibromyalgia; F41.9 Anxiety disorder, unspecified; F32.9 Major depressive disorder, single episode, unspecified; Z79.899 Other long term (current) drug therapy; Z79.51 Long term (current) use of inhaled steroids; Z88.8 Allergy status to other drugs, medicaments and biological substances
CPT/HCPCS: 71045; 87804; 94640; 94664; 99284; J7512